=== PATIENT | female | born 1950 | race Caucasian/White ===

== ENCOUNTER 2019-06-28 08:26 | Inpatient (IN) ==
--- NOTE | 2019-06-19 14:13 | Anesthesiology Consultation ---
Date of Service June 19, 2019 Assessment & Plan (1) Encounter for pre-operative examination: Chart Review Chart Review: Acceptable Risk for Surgery, Patient NOT seen in Pre Admission Testing and data entry supervisor initiated Consults Requested none History Surgery Operation Date: 06/28/19 09:30 Proposed Procedures p Esophagogastroduodenoscopy Dr. Browne - Jagjit Browne MD Height/Weight Height: 5 ft 6 in Weight: 81.647 kg Allergies Allergy/AdvReac Type Severity Reaction Status Date / Time Penicillins Allergy Mild RASH Verified 06/28/19 08:44 Medications Home Medications Medication Instructions Recorded Confirmed Last Taken albuterol sulfate HFA 90 2 puffs INHALATION Q4H PRN #18 gm 03/29/19 06/28/19 Unknown mcg/actuation aerosol inhaler triamcinolone acetonide 0.1 % 1 appln TOPICAL HS #80 gm 03/29/19 06/28/19 Unknown topical ointment lisinopril 10 1 tab PO QAM tab 04/04/19 06/28/19 06/27/19 09:00 mg-hydrochlorothiazide 12.5 mg tablet clindamycin HCl 150 mg capsule 600 mg PO UD PRN cap 06/08/19 06/28/19 06/21/19 pravastatin 20 mg tablet 20 mg PO QPM tab 06/08/19 06/28/19 06/27/19 09:00 ascorbic acid (vitamin C) 500 mg PO QAM 06/18/19 06/28/19 06/27/19 09:00 aspirin 81 mg PO QAM 06/18/19 06/28/19 06/26/19 calcium carbonate-vitamin D3 1 tab PO QAM 06/18/19 06/28/19 06/27/19 09:00 cannabidiol (CBD) extract 100 mg PO BID 06/18/19 06/28/19 06/27/19 21:00 duloxetine 20 mg PO QPM 06/18/19 06/28/19 06/27/19 21:00 duloxetine 40 mg PO QAM 06/18/19 06/28/19 06/27/19 09:00 meclizine 25 mg PO TID PRN 06/18/19 06/28/19 06/26/19 multivitamin 1 cap PO QAM 06/18/19 06/28/19 06/27/19 09:00 omega-3 acid ethyl esters 1 cap PO QAM 06/18/19 06/28/19 06/27/19 09:00 pyridoxine (vitamin B6) 100 mg PO QAM 06/18/19 06/28/19 06/27/19 09:00 ranitidine HCl 150 mg PO HS 06/18/19 06/28/19 06/27/19 21:00 pantoprazole 40 mg tablet,delayed 40 mg PO QAM #90 tab 06/21/19 06/27/19 09:00 release Past Medical History Medical History Psoriasis (Chronic) HTN (hypertension) (Chronic) Dyslipidemia (Chronic) Depression (Chronic) Arthritis (Chronic) GERD (gastroesophageal reflux disease) Hiatal hernia History of gastric ulcer Osteoarthritis Spinal stenosis Wheezing intermittent, reason for inhaler prn Past Family History Family History Father Coronary heart disease Heart disease Parkinsonian tremor Grandfather (Maternal) Coronary heart disease Heart disease Family history of diabetes mellitus Grandmother Rheumatoid arthritis Coronary heart disease Heart disease Sister Rheumatoid arthritis Diabetes Depression Osteoarthritis Mother Rheumatoid arthritis Diabetes Hypertension Stroke Family history of reaction to anesthesia trouble waking Family history of diabetes mellitus Aunt Diabetes Osteoporosis Family history of diabetes mellitus Uncle Family history of diabetes mellitus Grandmother (Maternal) Family history of diabetes mellitus Past Surgical History Surgical History History of carpal tunnel surgery of left wrist History of colonoscopy History of dilatation and curettage History of esophagogastroduodenoscopy (EGD) History of repair of right rotator cuff History of tonsillectomy and adenoidectomy History of tooth extraction History of total left knee replacement (TKR) History of total right knee replacement (TKR) History of wisdom tooth extraction Status post left foot surgery planter fascitis Social History Smoking Status: Former smoker Do You Dip or Chew Tobacco: No Smoking End Date: quit 30yrs ago Hx Alcohol Use: No Hx Substance Use: No substance use type: does not use Physical Exam Vital Signs Last Vital Signs Temp 36.4 C L 06/28/19 08:52 Pulse 65 06/28/19 08:52 Resp 18 06/28/19 08:52 BP 136/78 06/28/19 08:52 Pulse Ox 98 06/28/19 08:52 Testing Laboratory Results Laboratory Tests 06/11/19 06/11/19 09:59 09:59 WBC 7.04 Hgb 12.1 Hct 38.2 Plt Count 317 Sodium 140 Potassium 3.9 Chloride 105 Carbon Dioxide 27 BUN 18 Creatinine 0.82 Glucose 114 H TSH 2.430 Electrocardiogram Date: 09/22/10 Findings: + SB @ (58)
--- NOTE | 2019-06-28 08:58 | History & Physical Report ---
Date of Service June 28, 2019 Assessment & Plan (1) GERD (gastroesophageal reflux disease): Proceed with EGD. risks/benefits and procedure discussed with patient, who agrees to proceed History of Present Illness Primary Care Provider: Mina Beckham DO 68 yo female here for egd today. Allergies Allergy/AdvReac Type Severity Reaction Status Date / Time Penicillins Allergy Mild RASH Verified 06/28/19 08:44 Home Medications Home Medications Medication Instructions Recorded Confirmed Type albuterol sulfate HFA 90 2 puffs INHALATION Q4H PRN #18 gm 03/29/19 06/28/19 Rx mcg/actuation aerosol inhaler triamcinolone acetonide 0.1 % 1 appln TOPICAL HS #80 gm 03/29/19 06/28/19 Rx topical ointment lisinopril 10 1 tab PO QAM tab 04/04/19 06/28/19 History mg-hydrochlorothiazide 12.5 mg tablet clindamycin HCl 150 mg capsule 600 mg PO UD PRN cap 06/08/19 06/28/19 History pravastatin 20 mg tablet 20 mg PO QPM tab 06/08/19 06/28/19 History ascorbic acid (vitamin C) 500 mg PO QAM 06/18/19 06/28/19 History aspirin 81 mg PO QAM 06/18/19 06/28/19 History calcium carbonate-vitamin D3 1 tab PO QAM 06/18/19 06/28/19 History cannabidiol (CBD) extract 100 mg PO BID 06/18/19 06/28/19 History duloxetine 20 mg PO QPM 06/18/19 06/28/19 History duloxetine 40 mg PO QAM 06/18/19 06/28/19 History meclizine 25 mg PO TID PRN 06/18/19 06/28/19 History multivitamin 1 cap PO QAM 06/18/19 06/28/19 History omega-3 acid ethyl esters 1 cap PO QAM 06/18/19 06/28/19 History pyridoxine (vitamin B6) 100 mg PO QAM 06/18/19 06/28/19 History ranitidine HCl 150 mg PO HS 06/18/19 06/28/19 History pantoprazole 40 mg tablet,delayed 40 mg PO QAM #90 tab 06/21/19 Rx release Past Med/Surg History Medical History Psoriasis (Chronic) HTN (hypertension) (Chronic) Dyslipidemia (Chronic) Depression (Chronic) Arthritis (Chronic) GERD (gastroesophageal reflux disease) Hiatal hernia History of gastric ulcer Osteoarthritis Spinal stenosis Wheezing intermittent, reason for inhaler prn Surgical History History of carpal tunnel surgery of left wrist History of colonoscopy History of dilatation and curettage History of esophagogastroduodenoscopy (EGD) History of repair of right rotator cuff History of tonsillectomy and adenoidectomy History of tooth extraction History of total left knee replacement (TKR) History of total right knee replacement (TKR) History of wisdom tooth extraction Status post left foot surgery planter fascitis Family History Father Coronary heart disease Heart disease Parkinsonian tremor Grandfather (Maternal) Coronary heart disease Heart disease Family history of diabetes mellitus Grandmother Rheumatoid arthritis Coronary heart disease Heart disease Sister Rheumatoid arthritis Diabetes Depression Osteoarthritis Mother Rheumatoid arthritis Diabetes Hypertension Stroke Family history of reaction to anesthesia trouble waking Family history of diabetes mellitus Aunt Diabetes Osteoporosis Family history of diabetes mellitus Uncle Family history of diabetes mellitus Grandmother (Maternal) Family history of diabetes mellitus Social History Preferred Language: Hong Konger Communication Ability: Effective Visual Impairment: No Limitations Hearing Ability: Normal Cctv Technician Required: No Beliefs That Will Affect Care: None marital status: Single Current Living Situation: Family and Significant Other Current Living Situation Comment: Lives with significant other, son and grandchildren current occupational status: retired Other Information That Helps Us Care for You: No Feels Safe at Home: Yes Safety Concerns: Feels Safe At This Time Smoking Status: Former smoker Do You Dip or Chew Tobacco: No ; Smoking End Date: quit 30yrs ago ; Second Hand Exposure: No ; Tobacco Cessation Education Requested by Patient: No Hx Alcohol Use: No Hx Substance Use: No Childhood Exposure to Second-Hand Smoke: No caffeine: Yes during the past year weight has: remained stable Dental Care, Regularly: Yes Physical Activity Frequency: 3-4 Times per Week Seatbelt Use: always Sunscreen Use: Yes Physical Exam Constitutional: WD/WN, vitals as above Respiratory: normal respiratory effort, lungs clear to auscultation Cardiovascular: RRR, no murmur, no edema Gastrointestinal (Abdomen): normal bowel sounds, soft, nontender, no hepatosplenomegaly Musculoskeletal: no lower extremity edema Psychiatric: A+Ox3, euthymic affect Results & Data Vital Signs (Past 12 Hours) Vital Signs Temp Pulse Resp BP Pulse Ox 06/28/19 08:52 36.4 C L 65 18 136/78 98
[2019-06-28] MEDS ORDERED: SODIUM CHLORIDE 0.9% 1000ML 1,000 ML IV SCH (09:00)
[2019-06-28] MEDS ORDERED: ATROPINE SULFATE 0.1 MG/ML 10ML SYR IV PRN (09:24)
[2019-06-28] MEDS ORDERED: ePHEDrine sulfate 50 MG/ML AMP IV PRN (09:24)
[2019-06-28] MEDS ORDERED: LIDOCAINE HCL 2% 2 ML VIAL/AMP(20MG/ML) INFIL ONE (09:39)
[2019-06-28] MEDS ORDERED: PROPOFOL IV EMULSION 10 MG/ML 20 ML VIAL IV ONE ×3 (09:39→09:57)
--- NOTE | 2019-06-28 10:05 | GI REPORT ---
Patient Name: Jennifer Castro Procedure Date: 06/28/2019 9:05 AM Date of : 1950 Admit Type: Outpatient Age: 68 Gender: Female Attending MD: Jagjit Browne MD Procedure: Upper GI endoscopy Providers: Jagjit Browne MD Referring MD: Mina Beckham Indications: Heartburn Medicines: Monitored Anesthesia Care Complications: No immediate complications. Estimated blood loss: None. Estimated Blood Loss: Estimated blood loss: none. Procedure: Pre-Anesthesia Assessment: - Prior Anticoagulants: The patient has taken no previous anticoagulant or antiplatelet agents. - ASA Grade Assessment: II - A patient with mild systemic disease. After obtaining informed consent, the endoscope was passed under direct vision. Throughout the procedure, the patient's blood pressure, pulse, and oxygen saturations were monitored continuously. The Endoscope was introduced through the mouth, and advanced to the body of the stomach. The upper GI endoscopy was accomplished without difficulty. The patient tolerated the procedure well. Findings: A medium-sized hiatal hernia was present. A single 5 mm sessile polyp with no stigmata of recent bleeding was found in the gastric fundus. The polyp was removed with a cold snare. Resection and retrieval were complete. Estimated blood loss: none. The stomach body/antrum was twisted on itself, concerning for a possible volvulus vs. gastric outlet obstruction. Unable to locate the pylorus. Impression: - Medium-sized hiatal hernia. - A single gastric polyp. Resected and retrieved. Recommendation: - [facility] the [facility]. - NPO today. - Await pathology results. recommend admission and CT A/P with contrast to further evaluate for possible volvulus, surgery evaluation if volvulus/gastric outlet obstruction is confirmed Jagjit Browne MD 06/28/2019 10:05:06 AM This report has been signed electronically. Note Initiated On: 06/28/2019 9:05 AM Number of Addenda: 0 I attest to the content of the Intraoperative Record and orders documented therein, exceptions below {[id number]}
--- NOTE | 2019-06-28 12:40 | Anesthesiology Progress Note ---
Date of Service June 28, 2019 Anesthesia Post Procedure Vital Signs Vital Signs: Temp Pulse Resp BP Pulse Ox 06/28/19 11:15 67 18 124/87 97 06/28/19 10:46 60 18 124/72 97 06/28/19 10:32 62 18 95/76 L 94 06/28/19 10:01 60 18 108/66 97 06/28/19 08:52 36.4 C L 65 18 136/78 98 Transfer of Care Handoff Completed per policy Notes Mental Status: alert / awake / arousable Patient Amnestic to Procedure: Yes Nausea / Vomiting: adequately controlled Pain: adequately controlled Airway Patency, RR, SpO2: stable & adequate BP & HR: stable & adequate Hydration State: stable & adequate Anesthetic Complications: no major complications apparent and Pt Satisfied with anesthetic care
[2019-06-28] MEDS ORDERED: ACETAMINOPHEN 325 MG TAB PO PRN (12:49)
[2019-06-28] MEDS ORDERED: ONDANSETRON INJ 2 MG/ML 2 ML VIAL IV PRN (12:49)
[2019-06-28] MEDS ORDERED: ALBUT/IPRATROP 3MG/0.5MG NEB 3 ML VIAL NEB PRN (12:49)
--- NOTE | 2019-06-28 13:54 | History & Physical Report ---
Date of Service June 28, 2019 Assessment & Plan (1) Gastric volvulus: EGD with Dr. Browne on 06/28 was concerning for gastric volvulus. - CT a/p with oral and IV contrast - Depending on findings, consider gen surg consult (2) HTN (hypertension): BP stable at 125/90 after EGD. - Continue home meds (3) GERD (gastroesophageal reflux disease): Long-standing. Symptoms slowly worsening. - Continue home meds (4) Wheezing: Unclear whether this is asthma or other diagnosis. - DuoNebs PRN (5) DVT prophylaxis: SCDs - Low DVT risk per admission calculator & also in case she would need surgery History of Present Illness Chief Complaint: Possible gastric volvulus Primary Care Provider: Mina Beckham DO 68-year-old female with a history of hypertension and GERD who presents with possible gastric volvulus. The patient underwent an EGD this morning with Dr. Browne who found that she had a possible gastric volvulus. He was unable to assess the gastric outlet area given his findings. The patient reports that she is been having "years" of worsening GERD symptoms. She notes that the pain is usually worse when she has spicy food or food with "sauce". She reports the pain/GERD symptoms have been slowly getting worse, but steadily. Denies any recent jump in her symptoms. At present she denies any symptoms of abdominal pain, nausea, vomiting. She denies any recent history of fevers, chills, chest pain, shortness of breath, urinary or bowel symptoms. Allergies Allergy/AdvReac Type Severity Reaction Status Date / Time Penicillins Allergy Mild RASH Verified 06/28/19 08:44 Home Medications Home Medications Medication Instructions Recorded Confirmed Type albuterol sulfate HFA 90 2 puffs INHALATION Q4H PRN #18 gm 03/29/19 06/28/19 Rx mcg/actuation aerosol inhaler triamcinolone acetonide 0.1 % 1 appln TOPICAL HS #80 gm 03/29/19 06/28/19 Rx topical ointment lisinopril 10 1 tab PO QAM tab 04/04/19 06/28/19 History mg-hydrochlorothiazide 12.5 mg tablet clindamycin HCl 150 mg capsule 600 mg PO UD PRN cap 06/08/19 06/28/19 History pravastatin 20 mg tablet 20 mg PO QPM tab 06/08/19 06/28/19 History ascorbic acid (vitamin C) 500 mg PO QAM 06/18/19 06/28/19 History aspirin 81 mg PO QAM 06/18/19 06/28/19 History calcium carbonate-vitamin D3 1 tab PO QAM 06/18/19 06/28/19 History cannabidiol (CBD) extract 100 mg PO BID 06/18/19 06/28/19 History duloxetine 20 mg PO QPM 06/18/19 06/28/19 History duloxetine 40 mg PO QAM 06/18/19 06/28/19 History meclizine 25 mg PO TID PRN 06/18/19 06/28/19 History multivitamin 1 cap PO QAM 06/18/19 06/28/19 History omega-3 acid ethyl esters 1 cap PO QAM 06/18/19 06/28/19 History pyridoxine (vitamin B6) 100 mg PO QAM 06/18/19 06/28/19 History ranitidine HCl 150 mg PO HS 06/18/19 06/28/19 History pantoprazole 40 mg tablet,delayed 40 mg PO QAM #90 tab 06/21/19 Rx release Past Med/Surg History Medical History Psoriasis (Chronic) HTN (hypertension) (Chronic) Dyslipidemia (Chronic) Depression (Chronic) Arthritis (Chronic) GERD (gastroesophageal reflux disease) Hiatal hernia History of gastric ulcer Osteoarthritis Spinal stenosis Wheezing intermittent, reason for inhaler prn Surgical History History of carpal tunnel surgery of left wrist History of colonoscopy History of dilatation and curettage History of esophagogastroduodenoscopy (EGD) History of repair of right rotator cuff History of tonsillectomy and adenoidectomy History of tooth extraction History of total left knee replacement (TKR) History of total right knee replacement (TKR) History of wisdom tooth extraction Status post left foot surgery planter fascitis Family History Father Coronary heart disease Heart disease Parkinsonian tremor Grandfather (Maternal) Coronary heart disease Heart disease Family history of diabetes mellitus Grandmother Rheumatoid arthritis Coronary heart disease Heart disease Sister Rheumatoid arthritis Diabetes Depression Osteoarthritis Mother Rheumatoid arthritis Diabetes Hypertension Stroke Family history of reaction to anesthesia trouble waking Family history of diabetes mellitus Aunt Diabetes Osteoporosis Family history of diabetes mellitus Uncle Family history of diabetes mellitus Grandmother (Maternal) Family history of diabetes mellitus Social History Preferred Language: Nepali Communication Ability: Effective Visual Impairment: No Limitations Hearing Ability: Normal Grocery Buyer Required: No Beliefs That Will Affect Care: None marital status: Single Current Living Situation: Significant Other Current Living Situation Comment: Lives with significant other, son and grandchildren current occupational status: retired Other Information That Helps Us Care for You: No Feels Safe at Home: Yes Safety Concerns: Feels Safe At This Time Smoking Status: Former smoker Do You Dip or Chew Tobacco: No ; Smoking End Date: 20yrs ago quit ; Second Hand Exposure: No ; Tobacco Cessation Education Requested by Patient: No Hx Alcohol Use: No Hx Substance Use: No Childhood Exposure to Second-Hand Smoke: No caffeine: Yes during the past year weight has: remained stable Dental Care, Regularly: Yes Physical Activity Frequency: 3-4 Times per Week Seatbelt Use: always Sunscreen Use: Yes Review of Systems Review of Systems: All systems reviewed & are unremarkable except as noted in HPI & below Physical Exam Constitutional: WD/WN, vitals as above Eyes: EOM intact bilaterally; no conjunctival abnormality ENMT: external ear and nose normal, oropharynx normal Neck: trachea midline, no thyromegaly normal visual inspection Respiratory: normal respiratory effort, lungs clear to auscultation no respiratory distress Cardiovascular: RRR, no murmur, no edema Gastrointestinal (Abdomen): Inspection/Auscultation: abdomen normal to inspection and normal bowel sounds; abdomen not distended Percussion/Palpation: abdomen soft; abdomen nontender, no guarding and abdomen not rigid Musculoskeletal: no cyanosis or clubbing, extremities motor strength 5/5 Skin: no rashes, warm and dry Neurologic: moves all extremities and awake Psychiatric: Orientation: alert, oriented to person and cooperative Results & Data Vital Signs (Past 12 Hours) Vital Signs Temp Pulse Resp BP Pulse Ox 06/28/19 12:45 36.7 C 69 16 99 06/28/19 11:15 67 18 124/87 97 06/28/19 10:46 60 18 124/72 97 06/28/19 10:32 62 18 95/76 L 94 06/28/19 10:01 60 18 108/66 97 06/28/19 08:52 36.4 C L 65 18 136/78 98 Code Status & VTE Plan VTE Prophylaxis Plan VTE Prophylaxis will be ordered: Yes PG Care Time/CCT Total # of Minutes Spent Total Time Spent with Patient: Total time spent is greater than 50% in coordination of care (as documented) at patient's floor/unit and/or counseling patient:
[2019-06-28] MEDS ORDERED: INFLUENZA VACCINE HIGH DOSE 65+ 0.5 ML SYR IM ONE (15:15)
[2019-06-28] MEDS ORDERED: INFLUENZA ADMINISTRATION CHARGE ONE (15:15)
[2019-06-28] MEDS ORDERED: IOVERSOL 100ml IV PRN (15:25)
--- NOTE | 2019-06-28 15:42 | CT Scan Report ---
CT abd pelvis oral and IV con CLINICAL HISTORY: Abnormal upper endoscopy. Possible gastric volvulus. COMPARISON STUDY: None TECHNIQUE: The patient was scanned following administration of dilute oral contrast, and in a dynamic helical fashion during intravenous administration of 93 cc of Optiray 320. A dose lowering techniqu e was utilized adhering to the principles of ALARA. CT DOSE: 650.40 mGy.cm FINDINGS: Lower chest: There is partial visualization of a large hiatal hernia. There is a probable rotational abnormality of the stomach in the hernia sac however visualization of the entire hernia and esophagog astric junction will be necessary for more accurate characterization. There is no evidence for gastri c outlet obstruction. Liver: The contrast-enhanced liver is normal in size, contour, and attenuation. There is no intrahepa tic biliary ductal dilatation. The hepatic veins and portal veins are patent. Gallbladder: Unremarkable. Spleen: Normal in size and attenuation. Pancreas: Unremarkable. Adrenal glands: Unremarkable. Kidneys: No solid renal masses are visualized. There is mild fullness the right renal collecting syst em. Bowel: There are no transition zones indicate bowel obstruction. There is colonic diverticulosis. The re is no evidence of acute diverticulitis. There is no evidence of acute appendicitis Peritoneum: There is no intraperitoneal free air or abdominal ascites. Vasculature: The abdominal aorta is normal in course and caliber. Adenopathy: None. Pelvic viscera: There is a thickened fundal endometrium versus a submucosal fibroid. Calcified fibroi ds are visualized. Skeletal structures: No destructive osseous lesions are seen. IMPRESSION: 1. Partially visualized large hiatal hernia. A rotational abnormality of the stomach in the hernia sa c is suspected however it cannot be fully characterized as the entire hernia is not visualized on thi s CT scan of the abdomen. The esophagogastric junction is not visualized. CT scanning the chest could be obtained for further characterization as deemed clinically appropriate. There is no evidence of g astric outlet obstruction 2. No evidence of bowel obstruction. No evidence of free air 3. No acute inflammatory changes 4. Mild fullness the right renal collecting system Electronically signed by: Bereket Contreras M.D. 06/28/2019 3:41 PM
--- NOTE | 2019-06-28 17:05 | CT Scan Report ---
CT chest wo con CLINICAL HISTORY: Large hiatal hernia with rotation COMPARISON STUDY: 06/28/2019 CT DOSE: 376.61 mGy.cm TECHNIQUE: CT of the thorax was performed from the thoracic inlet to the lung bases. Images are revi ewed in the axial, sagittal, and coronal planes. IV contrast was not administered for this examinatio n. A dose lowering technique was utilized adhering to the principles of ALARA. FINDINGS: Thyroid: Imaged portions of the thyroid gland are normal in appearance. Thoracic aorta: There is mild ectasia of descending thoracic aorta which measures 36 mm. Heart: The heart is normal in size. There is no pericardial effusion. There are coronary artery calci fications. Lungs and pleural spaces: There are no pleural effusions. There is mild left basilar atelectatic espinosa ge. There is no focal pulmonary consolidation to indicate pneumonia. There is a 5 mm left upper lobe pulmonary nodule versus small aneurysm Mediastinum: There is no mediastinal lymphadenopathy. There is a sliding-type hiatal hernia with an o rganoaxial gastric volvulus. Miya: There is no evidence of pathologic hilar adenopathy given the limitations of a noncontrast stud y Axilla: Clear. Upper abdomen: There is a large sliding hiatal hernia with an organoaxial gastric volvulus. Skeletal structures: There are no lytic or blastic osseous lesions. IMPRESSION: 1. Large sliding hiatal hernia with an organoaxial gastric volvulus 2. 5 mm left upper pulmonary nodule versus small aneurysm Electronically signed by: Bereket Contreras M.D. 06/28/2019 5:04 PM
--- NOTE | 2019-06-28 17:28 | Discharge Summary ---
Date of Service June 28, 2019 Admission HPI Per Admitting Provider 68-year-old female with a history of hypertension and GERD who presents with possible gastric volvulus. The patient underwent an EGD this morning with Dr. Browne who found that she had a possible gastric volvulus. He was unable to assess the gastric outlet area given his findings. The patient reports that she is been having "years" of worsening GERD symptoms. She notes that the pain is usually worse when she has spicy food or food with "sauce". She reports the pain/GERD symptoms have been slowly getting worse, but steadily. Denies any recent jump in her symptoms. At present she denies any symptoms of abdominal pain, nausea, vomiting. She denies any recent history of fevers, chills, chest pain, shortness of breath, urinary or bowel symptoms. Principal Diagnosis Hiatal hernia with gastric volvulus Discharge Exam Constitutional WD/WN, vitals as above Eyes EOM intact bilaterally; no conjunctival abnormality ENMT external ear and nose normal, oropharynx normal Neck trachea midline, no thyromegaly normal visual inspection Respiratory normal respiratory effort, lungs clear to auscultation no respiratory distress Cardiovascular RRR, no murmur, no edema Gastrointestinal (Abdomen) Inspection/Auscultation: abdomen normal to inspection and normal bowel sounds; abdomen not distended Percussion/Palpation: abdomen soft; abdomen nontender, no guarding and abdomen not rigid Musculoskeletal no cyanosis or clubbing, extremities motor strength 5/5 Skin no rashes, warm and dry Neurologic moves all extremities and awake Psychiatric Orientation: alert, oriented to person and cooperative Discharge Data Allergies Allergy/AdvReac Type Severity Reaction Status Date / Time Penicillins Allergy Mild RASH Verified 06/28/19 08:44 Procedures Performed Operation Date: 06/28/19 09:30 Actual Procedures p EGD Polypectomy - Jagjit Browne MD Ordered Studies 06/28/19 12:49 CT abd pelvis oral and IV con [facility] 06/28/19 16:30 CT chest wo con [facility] Hospital Course (1) Gastric volvulus: EGD with Dr. Browne on 06/28 was concerning for gastric volvulus. - CT chest showed a large sliding hernia with organoaxial gastric volvulus - Patient has had no symptoms of this other than her gradually increasing GERD symptoms. The case was discussed with Dr. Musa Kenney who will see her in the office on Tuesday. The patient was told to seek immediate medical care if she has new, worsening, or different abdominal pain, or fevers, chills, nausea, vomiting, or other gastric symptoms. 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 Up-to-date indicates her annual probability of developing acute symptoms requiring emergent surgery is only 1.2%. (2) HTN (hypertension): BP stable at 125/90 after EGD. - Continue home meds (3) GERD (gastroesophageal reflux disease): Long-standing. Symptoms slowly worsening. - Continue home meds (4) Wheezing: Unclear whether this is asthma or other diagnosis. - DuoNebs PRN (5) DVT prophylaxis: SCDs - Low DVT risk per admission calculator & also in case she would need surgery Total Time Total Time Spent Total Time Spent (In Minutes): 45 Discharge Plan Discharge Items Patient Disposition: Home - Self-Care Reason For Visit: GASTRIC VOLVULUS Discharge Diagnosis: Concern for gastric volvulus - large hiatal hernia Activity: Resume your previous activity Non-emergency contact: Primary Care Provider and Surgeon Call non-emergency contact if: your pain is not controlled, your pain is worsening, your pain is unusual for you, your pain is concerning for you and your temperature is above 101 Follow-up/Referrals: Eder Dietrich MD, FACS [Surgeon] - (Please call Dr. Dietrich's office if you would like to discuss surgical options with him.) Mina Beckham DO [Primary Care Provider] - Diet: Regular Addtl Attending Provider Instructions: You were admitted after an EGD showed a possible twisting of your stomach. We did a CT scan of your chest and your abdomen which shows a large hiatal hernia that does have rotation. This puts it at risk for losing blood flow at some point in the future. This can be a dangerous situation and you should seek immediate medical help if you have new pain, worsening pain, nausea, or vomi ting. Please follow up with Dr. Dietrich or a surgeon of your choosing within 1-2 weeks. Pending Studies at Discharge: No Stand-Alone Forms: My [facility] [email or web address] Medications and DC Order Prescriptions: Continued pantoprazole 40 mg tablet,delayed release (DR/EC) 40 mg PO QAM Qty: 90 RF: 3 albuterol sulfate 90 mcg/actuation HFA aerosol inhaler 2 puffs inhalation Q4H PRN (Reason: shortness of breath or wheezing) Qty: 18 RF: 3 triamcinolone acetonide 0.1 % ointment 1 appln topical HS Qty: 80 RF: 3 lisinopril-hydrochlorothiazide 10-12.5 mg tablet 1 tab PO QAM RF: 0 clindamycin HCl 150 mg capsule 600 mg PO UD PRN (Reason: prior to dental procedures) RF: 0 pravastatin 20 mg tablet 20 mg PO QPM RF: 0 ranitidine HCl 150 mg Tablet 150 mg PO HS RF: 0 duloxetine 20 mg Capsule,Delayed Release(Dr/Ec) 20 mg PO QPM RF: 0 cannabidiol (CBD) extract 100 mg/mL Solution 100 mg PO BID RF: 0 calcium carbonate-vitamin D3 600 mg(1,500mg) -200 unit tablet 1 tab PO QAM RF: 0 aspirin 81 mg tablet,delayed release (DR/EC) 81 mg PO QAM RF: 0 ascorbic acid (vitamin C) 500 mg tablet 500 mg PO QAM RF: 0 meclizine 25 mg tablet 25 mg PO TID PRN (Reason: Dizziness) RF: 0 pyridoxine (vitamin B6) 100 mg tablet 100 mg PO QAM RF: 0 multivitamin capsule 1 cap PO QAM RF: 0 duloxetine 20 mg capsule,delayed release(DR/EC) 40 mg PO QAM RF: 0 omega-3 acid ethyl esters 1 gram capsule 1 cap PO QAM RF: 0 Discharge Orders: Discharge Order (Routine); Ordered 06/28/19 Ordered By: Andi Cheatham Admission Data Admit Date/Time: 06/28/19 10:31 Attending Provider: Andi Cheatham Admit Provider: Andi Cheatham Primary Care Provider: Mina Beckham Other Interventions: Discharge Summary Assessment (RN) Last Done: 06/28/19 12:32
[2019-06-28] MEDS ORDERED: TRIAMCINOLONE ACET 0.1% OINT 15 GM TUBE TOP SCH (21:00)
[2019-06-28] MEDS ORDERED: DULOXETINE HCL 20 MG CAP PO SCH (21:00)
[2019-06-28] MEDS ORDERED: PRAVASTATIN SOD 20 MG TAB PO SCH (21:00)
[2019-06-29] MEDS ORDERED: DULOXETINE HCL 20 MG CAP PO SCH (09:00)
[2019-06-29] MEDS ORDERED: ASCORBIC ACID 500 MG TAB PO SCH (09:00)
== END 2019-06-28 17:56 | disposition home or self-care (01) | DRG 392 ==
LOC: ENDO 08:26 → 3W 10:31

== ENCOUNTER 2019-07-31 07:34 | Inpatient (IN) ==
--- NOTE | 2019-07-10 13:47 | Anesthesiology Consultation ---
Date of Service July 10, 2019 Assessment & Plan (1) Encounter for pre-operative examination: Chart Review Chart Review: Acceptable Risk for Surgery and Patient NOT seen in Pre Admission Testing Consults Requested none History Surgery Operation Date: 07/18/19 07:30 Proposed Procedures p Robotic-Assisted Laparoscopic Hiatal Hernia Repair, Fundoplication with - Eder Dietrich MD, FACS s Esophagogastroduodenoscopy - Eder Dietrich MD, FACS Height/Weight Height: 5 ft 6 in Weight: 81.647 kg Allergies Allergy/AdvReac Type Severity Reaction Status Date / Time Penicillins Allergy Mild RASH Verified 07/10/19 10:04 oxycodone AdvReac Intermediate Nausea Verified 07/10/19 10:04 Medications Home Medications Medication Instructions Recorded Confirmed Last Taken albuterol sulfate HFA 90 2 puffs INHALATION Q4H PRN #18 gm 03/29/19 07/10/19 Unknown mcg/actuation aerosol inhaler triamcinolone acetonide 0.1 % 1 appln TOPICAL HS #80 gm 03/29/19 07/10/19 Unknown topical ointment lisinopril 10 1 tab PO QAM tab 04/04/19 07/10/19 06/27/19 09:00 mg-hydrochlorothiazide 12.5 mg tablet clindamycin HCl 150 mg capsule 600 mg PO UD PRN cap 06/08/19 07/10/19 06/21/19 pravastatin 20 mg tablet 20 mg PO QPM tab 06/08/19 07/10/19 06/27/19 09:00 ascorbic acid (vitamin C) 500 mg PO QAM 06/18/19 07/10/19 06/27/19 09:00 aspirin 81 mg PO QAM 06/18/19 07/10/19 06/26/19 calcium carbonate-vitamin D3 1 tab PO QAM 06/18/19 07/10/19 06/27/19 09:00 cannabidiol (CBD) extract 100 mg PO BID 06/18/19 07/10/19 06/27/19 21:00 duloxetine 20 mg PO QPM 06/18/19 07/10/19 06/27/19 21:00 duloxetine 40 mg PO QAM 06/18/19 07/10/19 06/27/19 09:00 meclizine 25 mg PO TID PRN 06/18/19 07/10/19 06/26/19 multivitamin 1 cap PO QAM 06/18/19 07/10/19 06/27/19 09:00 omega-3 acid ethyl esters 1 cap PO QAM 06/18/19 07/10/19 06/27/19 09:00 pyridoxine (vitamin B6) 100 mg PO QAM 06/18/19 07/10/19 06/27/19 09:00 ranitidine HCl 150 mg PO HS 06/18/19 07/10/19 06/27/19 21:00 pantoprazole 40 mg tablet,delayed 40 mg PO QAM #90 tab 06/21/19 07/10/19 06/27/19 09:00 release acetaminophen [Acetaminophen Extra 1,000 mg PO DAILY PRN 07/09/19 07/10/19 Unknown Strength] Past Medical History Medical History Psoriasis (Chronic) HTN (hypertension) (Chronic) Dyslipidemia (Chronic) Depression (Chronic) Arthritis (Chronic) GERD (gastroesophageal reflux disease) Hiatal hernia History of bronchitis History of gastric ulcer Osteoarthritis Spinal stenosis Wheezing intermittent, reason for inhaler prn Past Family History Family History Father Heart disease Hypertension Grandfather (Maternal) Heart disease Grandmother Heart disease Sister Diabetes Mother Diabetes Stroke Heart disease Aunt Diabetes Uncle No problems noted. Grandmother (Maternal) No problems noted. Past Surgical History Surgical History History of carpal tunnel surgery of left wrist History of colonoscopy History of dilatation and curettage History of esophagogastroduodenoscopy (EGD) History of repair of right rotator cuff History of tonsillectomy and adenoidectomy History of tooth extraction History of total left knee replacement (TKR) History of total right knee replacement (TKR) History of wisdom tooth extraction Status post left foot surgery planter fascitis Social History Smoking Status: Former smoker Do You Dip or Chew Tobacco: No Smoking End Date: quit 30 years ago Hx Alcohol Use: No Hx Substance Use: No substance use type: does not use Testing Laboratory Results Laboratory Tests 08/18/18 06/11/19 06/11/19 11:51 09:59 09:59 WBC 7.04 Hgb 12.1 Hct 38.2 Plt Count 317 Sodium 140 Potassium 3.9 Chloride 105 Carbon Dioxide 27 BUN 18 Creatinine 0.82 Glucose 114 H Hemoglobin A1c 5.6 TSH 2.430 Electrocardiogram Date: 08/18/18 Findings: + NSR @ (63) PACs
[~2019-07-31 07:34] MED LIST: LR 15ML/HR IV SCH
[2019-07-31] MEDS ORDERED: BUPIVACAINE LIPOSOME 1.3% 266 MG/20 ML VIAL ONE (08:15)
[2019-07-31] MEDS ORDERED: BUPIVACAINE 0.5 % 5 MG/1 ML MPF 30ML VIAL ONE (08:15)
[2019-07-31] MEDS ORDERED: SODIUM CHLORIDE 0.9% PF 50 ML VIAL ONE (08:16)
[2019-07-31] MEDS ORDERED: MIDAZOLAM HCL 1 MG/ML 2ML VIAL ONE (08:22)
[2019-07-31] MEDS ORDERED: LARYING-O-JET KIT (LTA) ONE (08:22)
[2019-07-31] MEDS ORDERED: fentaNYL citrate 100 MCG/2 ML VIAL ONE ×3 (08:22→11:52)
[2019-07-31] MEDS ORDERED: LIDOCAINE HCL 2% 2 ML VIAL/AMP(20MG/ML) INFIL ONE (08:22)
[2019-07-31] MEDS ORDERED: ROCURONIUM BROMIDE 10 MG/ML 5 ML VIAL ONE ×4 (08:22→10:01)
[2019-07-31] MEDS ORDERED: GLYCOPYRROLATE 0.2 MG/ML VIAL ONE (08:22)
[2019-07-31] MEDS ORDERED: PROPOFOL IV EMULSION 10 MG/ML 20 ML VIAL IV ONE (08:22)
--- NOTE | 2019-07-31 09:08 | History & Physical Bridge Note ---
Date of Service July 31, 2019 History & Physical Bridge Note I have examined the patient, reviewed the History & Physical and in the interval since the performance of the History & Physical I have noted the following changes of clinical significance: no changes noted
[2019-07-31] MEDS ORDERED: CLINDAMYCIN PHOS 300 MG/2 ML VIAL ONE ×2 (09:42→09:48)
[2019-07-31] MEDS ORDERED: CLINDAMYCIN PHOS 900 MG/6 ML VIAL IV ONE (10:32)
[2019-07-31] MEDS ORDERED: PROMETHAZINE HCL 12.5 MG in SODIUM CHLORIDE 0.9% 50 ML IV PRN (11:04)
[2019-07-31] MEDS ORDERED: ePHEDrine sulfate 50 MG/ML AMP IV PRN (11:04)
[2019-07-31] MEDS ORDERED: LABETALOL HCL IV 5 MG/ML 20ML IV PRN (11:04)
[2019-07-31] MEDS ORDERED: NALOXONE HCL 0.4 MG/1 ML VIAL/CARP IV PRN (11:04)
[2019-07-31] MEDS ORDERED: fentaNYL citrate 100 MCG/2 ML VIAL IV PRN (11:04)
[2019-07-31] MEDS ORDERED: HYDROmorphone INJ 1 MG/ML SYRINGE IV PRN (11:04)
[2019-07-31] MEDS ORDERED: ONDANSETRON INJ 2 MG/ML 2 ML VIAL IV PRN (11:04)
[2019-07-31] MEDS ORDERED: ATROPINE SULFATE 0.1 MG/ML 10ML SYR IV PRN (11:04)
[2019-07-31] MEDS ORDERED: FLUMAZENIL 0.1 MG/1 ML 10 ML VIAL IV PRN (11:04)
--- NOTE | 2019-07-31 11:53 | Operative Report ---
PG Post Operative Report Pre & Post Diagnosis Operation Date: 07/31/19 08:45 Pre-Op Diagnosis: Paraesophageal Hernia Post-Op Diagnosis: Paraesophageal Hernia I identified the patient and participated in the time-out.: Yes Procedure Operation Date: 07/31/19 08:45 Actual Procedures p Robotic-Assisted Laparoscopic Hiatal Hernia Repair - Eder Dietrich MD, FACS Surgeon Eder Dietrich MD, FACS Road Sign Installer Sally MATTHEWS Estimated Blood Loss 25 Findings Consistent with Post-Op Diagnosis Specimens Hernia Sac Anesthesia Type General Complications none Disposition Disposition: Recovery Room Indications Paraesophageal Hernia Description of Procedure This is 68-year-old female with a symptomatic paraesophageal hernia. She really had no symptoms of reflux. We long discussion in the office and in the hospital and elected to proceed with an elective robot-assisted laparoscopic repair. Patient has some esophageal dysmotility but not enough to offer her myotomy. I felt that a simple repair of this large paraesophageal hernia would be best. On 07/31/2019 the patient was brought to the operating room and underwent an uncomplicated robot-assisted laparoscopic repair of this hiatal hernia. She had a large hernia sac but we reduced the stomach nicely and there was a nice length of the esophagus in the abdomen I did not do a wrap. She tolerated well. Procedure: Patient was brought to the operating room and laid in the supine position. General anesthesia was induced and endotracheal intubation was performed. After appropriate monitoring lines and equipment have been placed, a timeout was called. Prophylactic antibiotics given. Patient was then prepped and draped in usual sterile fashion. I placed a 12 mm camera port in the midline above the umbilicus. This showed there was really no adhesions in the abdomen. We insufflated carbon dioxide. Then placed an 8 mm port midclavicular line on the left right under the costal margin. We placed another on the right a few centimeters below the costal margin in the midclavicular line. 5 mm incisions were then made and 5 mm ports placed in both lateral lower abdominal ports. An early childhood assistant's port was placed with a 12 mm port to the right of the umbilicus. The liver retractor was placed in the far right 5 mm port and we placed this and had excellent exposure. There was a large hiatus. We then proceeded to reduce omentum and stomach out of this. I used a Cardier and vessel sealer as well as a retractor and the 5 mm port. I then began taking the short gastrics all along the greater curvature. This led us directly up to the left crura. I then incised the hernia sac we took this out almost circumferentially from the left crura up anteriorly and then over to the right crura and divided the pars flaccida. I then took the hernia sac down by going into the relatively avascular plane and taking it all the way down this rather large hernia space. To get all the way down we could easily identify the esophagus. There was stomach adhesions which we had to spend a good deal of time removing. We had excellent exposure however finally able to get the entire hernia sac down. We freed up the esophagus nicely quite proximally. Coming back down we could see we had plenty of length in the abdomen. I then removed a large hernia sac using the vessel sealer. This was delivered off the field. 0 silk was used in a [id number] fashion x3 to close the posterior crura. This came together nicely under no tension. I placed another [id number] anteriorly. This looked quite good and I elected to hold off on a fundoplication or a tacking maneuver. Stomach laid very nicely. All instruments and retractors were removed. We really got into no bleeding. #1 Maxon was used to close the early childhood assistant's port as well as the camera port. 4 Monocryl was used in running subcuticular fashion to approximate the skin edges. Antimicrobial dressings were placed. The patient tolerated it very well was awakened without difficulty from anesthesia. Transported to the postanesthesia care unit stable condition. I attest to the content of the Intraoperative Record and any orders documented therein. Any exceptions are noted below.
[2019-07-31] MEDS ORDERED: METOCLOPRAMIDE HCL INJ 5 MG/ML 2 ML VIAL IV ONE (12:15)
--- NOTE | 2019-07-31 12:27 | XRay Report ---
XR chest 1V portable HISTORY: 68 years-old Female s/p hiatal hernia repair follow-up study in a patient with history of h iatal hernia repair COMPARISON: Chest CT 06/28/2019 TECHNIQUE: Portable AP view of the chest FINDINGS: Cardiac silhouette is enlarged. Retrocardiac lucency suggests residual hernia versus postoperative ch elisa. Linear subsegmental left basilar and right perihilar opacities suggest atelectasis. Moderate si zed right pneumothorax, 4.2 cm separation at the right lung apex. No left pneumothorax identified. De generative changes of the shoulders and spine. Mild right hemidiaphragmatic elevation. IMPRESSION: 1. Moderate right pneumothorax. 2. Cardiomegaly. 3. Bibasilar opacities suggest atelectasis. The above report was generated using voice recognition software. It may contain grammatical, syntax o r spelling errors. Electronically signed by: Gama Chen M.D. 07/31/2019 12:26 PM
--- NOTE | 2019-07-31 13:09 | Anesthesiology Progress Note ---
Date of Service July 31, 2019 Anesthesia Post Procedure Vital Signs Vital Signs: Temp Pulse Resp BP Pulse Ox 07/31/19 13:00 59 L 16 119/58 L 96 07/31/19 12:50 36.6 C 57 L 16 103/66 95 07/31/19 12:40 61 16 130/68 95 07/31/19 12:30 62 17 130/70 94 07/31/19 12:20 63 18 136/76 96 07/31/19 12:13 36.6 C 68 18 140/76 95 Transfer of Care Handoff Completed per policy Notes Mental Status: alert / awake / arousable Patient Amnestic to Procedure: Yes Nausea / Vomiting: adequately controlled Pain: adequately controlled Airway Patency, RR, SpO2: stable & adequate BP & HR: stable & adequate Hydration State: stable & adequate Anesthetic Complications: no major complications apparent
[2019-07-31] MEDS ORDERED: MECLIZINE HCL 25 MG TAB PO PRN (13:30)
[2019-07-31] MEDS ORDERED: ALBUTEROL HFA 8 GM INHALER INH PRN (13:30)
[2019-07-31] MEDS: D5W AND 1/2NSS 1,000 ML IV SCH ×2 (13:50→23:09)
[2019-07-31] MEDS: ACETAMINOPHEN 1,000 MG/100 ML VIAL IV SCH ×2 (13:51→22:05)
[2019-07-31] MEDS ORDERED: METOCLOPRAMIDE HCL INJ 5 MG/ML 2 ML VIAL IV SCH (14:00)
[2019-07-31] MEDS: MoRPHine SULFATE 2 MG/ML CARP IV PRN ×3 (15:01→20:29)
[2019-07-31] MEDS: ONDANSETRON INJ 2 MG/ML 2 ML VIAL IV SCH ×2 (16:09→22:05)
[2019-07-31] MEDS: METOCLOPRAMIDE HCL INJ 5 MG/ML 2 ML VIAL IV SCH (20:22)
[2019-07-31] MEDS: TRIAMCINOLONE ACET 0.1% OINT 15 GM TUBE TOP SCH (22:04)
[2019-07-31] MEDS: PRAVASTATIN SOD 20 MG TAB PO SCH (22:05)
[2019-07-31] MEDS: DOCUSATE SODIUM 100 MG CAP PO SCH (22:05)
[2019-07-31] MEDS: DULOXETINE HCL 20 MG CAP PO SCH (22:05)
[2019-08-01] MEDS: ONDANSETRON INJ 2 MG/ML 2 ML VIAL IV SCH ×7 (00:22→23:05)
[2019-08-01] MEDS: MoRPHine SULFATE 2 MG/ML CARP IV PRN (00:23)
[2019-08-01] MEDS: METOCLOPRAMIDE HCL INJ 5 MG/ML 2 ML VIAL IV SCH ×2 (05:38→12:58)
[2019-08-01] MEDS: ACETAMINOPHEN 1,000 MG/100 ML VIAL IV SCH (05:38)
--- NOTE | 2019-08-01 06:59 | XRay Report ---
XR chest 1V portable HISTORY: 68 years-old Female pneumotbhorax follow up study in a patient with right-sided pneumothora x COMPARISON: Chest radiograph 07/31/2019 TECHNIQUE: Semierect portable AP view of the chest FINDINGS: Cardiomediastinal and hilar silhouettes are unchanged. Lateral left lung base and retrocardiac opacit ies persist. Hypoinflated lungs. Resolution of the previously noted right apical pneumothorax. No def inite pneumothorax identified on today's study. No pleural effusion or overt pulmonary edema. IMPRESSION: 1. Previously noted right sided pneumothorax is not identified on today's exam. 2. Cardiomegaly with hypoinflation. The above report was generated using voice recognition software. It may contain grammatical, syntax o r spelling errors. Electronically signed by: Gama Chen M.D. 08/01/2019 6:58 AM
[2019-08-01] MEDS: D5W AND 1/2NSS 1,000 ML IV SCH (09:32)
--- NOTE | 2019-08-01 09:35 | Fluoroscopy Report ---
FL barium swallow CLINICAL HISTORY: 68 years-old Female presenting with s/p hiatal hernia repair. TECHNIQUE: A routine air-contrast (double contrast) barium esophagram was performed. Multiple spot im ages of the esophagus were acquired both upright and prone. COMPARISON: None. FINDINGS: Ingestion: The patient was able to ingest barium and the barium pill without difficulty. Aspiration: None. Esophageal mucosa: Normal. No evidence of intrinsic or extrinsic mass lesion. Esophageal motility: Delayed clearance of the distal esophagus, which contained a column of contrast. Mild distention of the mid to distal esophagus. Esophageal length: Normal. Gastroesophageal junction: Normal distention of the GE junction. No evidence of a hiatal hernia. Reflux: Evaluation for reflux not possible given the persistent column of contrast in the esophagus. Gastric emptying: Delayed gastric emptying evident with oral contrast diluted by intragastric fluid. Delayed imaging does not demonstrate significant clearance of contrast from the stomach. Fluoroscopy dosage (mGy): Not available. Fluoroscopy time: 3.1 minutes. Number or time of high level fluoroscopy (HLF), digital spot, or digital subtraction images: 15. IMPRESSION: 1. Post surgical changes of hiatal hernia repair. No recurrent hernia. 2. Delayed clearance of contrast from the distal esophagus likely relates to expected postoperative edema at the gastroesophageal junction. 3. Delayed clearance of contrast from the stomach a relate to postoperative ileus or other neurogeni c etiology. Obstruction is considered unlikely though no significant clearance after 15 minutes of im aging. Consider radiographic follow-up. Electronically signed by: Rito Clemens M.D. 08/01/2019 9:34 AM
[2019-08-01] MEDS: ENOXAPARIN INJ 40 MG/0.4 ML SYR SQ SCH (10:30)
--- NOTE | 2019-08-01 11:37 | XRay Report ---
KUB CLINICAL HISTORY: Status post paraesophageal hernia repair. FINDINGS: 2 AP, portable, supine abdominal radiographs are correlated with abdominal CT dated 019 and barium esophagram dated 08/01/2019. Enteric contrast fills the stomach and small bowel. There is no evidence of bowel obstruction. There is likely retained contrast within the distended distal e sophagus. No evidence of intraperitoneal free air is seen on these supine images. Numerous phlebolith s are observed in the pelvis. The skeletal structures are osteopenic an grossly intact. There is mild lumbosacral spondylosis and scoliosis. IMPRESSION: 1. Enteric contrast fills the stomach and small bowel loops. 2. There is no evidence of bowel obstruction. 3. There is likely retained oral contrast within the distended distal esophagus. This is only partial ly visualized. Electronically signed by: Isiah Joshi M.D. 08/01/2019 11:36 AM
[2019-08-01] MEDS: ASPIRIN 81 MG ECTAB PO SCH (12:57)
[2019-08-01] MEDS: PANTOprazole 40 MG TAB PO SCH (12:57)
[2019-08-01] MEDS: DOCUSATE SODIUM 100 MG CAP PO SCH ×2 (12:57→20:29)
--- NOTE | 2019-08-01 16:50 | Surgery Progress Note ---
Date of Service August 01, 2019 Assessment & Plan (1) History of repair of hiatal hernia: I am going to admit this patient and keep her for another day. I am uncomfortable sending her out due to the fact that she is hypoxic which she has never been before. In addition, while her x-ray looks much better today I am still concerned about the fact that we have not been to get her oxygen off. He was not hypoxic before this admission. We will stop her IV fluids. We will check another x-ray in the morning. We will probably discharge her. Present on Admission?: No Subjective Patient is having quite a bit of incisional pain. Her abdomen is soft and she has bowel sounds. She is also remained hypoxic. The patient lives alone. She is had no nausea or vomiting. We checked a barium swallow today and I was a bit concerned. She has no extravasation and there was a bit of hold up in the distal esophagus however we did not do a fundoplication. In addition there was stasis in her stomach which is not surprising after a paraesophageal hernia with her stomach in her chest. We repeated a KUB a few hours later and this had passed on to her small bowel although she still had some in her distal esophagus in her stomach. Patient has been ambulating. She is requiring oxygen still. We are going to allow her to have full liquids as she is hungry. If she is stable we will discharge her tomorrow. Physical Exam Physical Exam: Abdomen is soft. Her dressings are dry. She has no obvious hematomas. Neurologically she is completely intact. Her lungs are clear. Results & Data Vital Signs (Past 12 Hours) Vital Signs Temp Pulse Pulse Resp BP Pulse Ox 08/01/19 15:51 36.9 C 75 16 123/81 91 08/01/19 13:08 94 08/01/19 07:20 36.5 C 74 19 118/80 93 08/01/19 06:26 94 PG Care Time/CCT Total # of Minutes Spent Total Time Spent with Patient: Total time spent is greater than 50% in coordination of care (as documented) at patient's floor/unit and/or counseling patient:
[2019-08-01] MEDS: TRIAMCINOLONE ACET 0.1% OINT 15 GM TUBE TOP SCH (20:27)
[2019-08-01] MEDS: DULOXETINE HCL 20 MG CAP PO SCH (20:29)
[2019-08-01] MEDS: PRAVASTATIN SOD 20 MG TAB PO SCH (20:29)
[2019-08-02 07:31] VITALS: BP 119/73; TEMP 98.1
--- NOTE | 2019-08-02 07:32 | XRay Report ---
XR chest 1V portable CLINICAL HISTORY: 68 years-old Female presenting with pneumothorax. TECHNIQUE: Portable upright AP view of the chest was obtained. COMPARISON: 08/01/2019. FINDINGS: Atherosclerosis of the aortic arch. Cardiac silhouette enlarged. Mildly low lung volumes as on prior exam. Bandlike opacity in the right lower lung. Small left pleural effusion with decreased aeration o f the left lung base. No pneumothorax. Degenerative changes of the thoracic spine. Oral contrast may be present in the bowel in the left mid abdomen. IMPRESSION: 1. No pneumothorax. 2. Increased bibasilar atelectasis with mildly low lung volumes. 3. Suspected small left pleural effusion. 4. Cardiomegaly. Electronically signed by: Rito Clemens M.D. 08/02/2019 7:30 AM
--- NOTE | 2019-08-02 08:11 | XRay Report ---
KUB CLINICAL HISTORY: Status post hiatal hernia repair. FINDINGS: An AP, portable, supine abdominal radiograph is compared to study dated 08/01/2019 and sugar elated with abdominal CT dated 06/28/2019. There is a nonobstructed abdominal bowel gas pattern. Ente lizandro contrast is present in the colon. No evidence of intraperitoneal free air is seen on this supine examination. Phleboliths are noted in the pelvis. Consolidation and pleural effusion is suggested at the right lung base. The skeletal structures are osteopenic and appear intact. Lumbosacral spondylosi s is noted. IMPRESSION: 1. Nonobstructed abdominal bowel gas pattern. 2. Enteric contrast is present in the colon. 3. Pleural effusion and consolidation is suggested at the right lung base. Electronically signed by: Isiah Joshi M.D. 08/02/2019 8:10 AM
[2019-08-02] MEDS: PANTOprazole 40 MG TAB PO SCH (09:06)
[2019-08-02] MEDS: DOCUSATE SODIUM 100 MG CAP PO SCH (09:06)
[2019-08-02] MEDS: ASPIRIN 81 MG ECTAB PO SCH (09:07)
[2019-08-02] MEDS: ENOXAPARIN INJ 40 MG/0.4 ML SYR SQ SCH (09:07)
[2019-08-02] MEDS: ONDANSETRON INJ 2 MG/ML 2 ML VIAL IV SCH ×2 (09:08→12:30)
[2019-08-02 10:27] VITALS: PULSE 90; O2SAT 94
--- NOTE | 2019-08-03 04:06 | Discharge Summary ---
ADMISSION DIAGNOSIS: Hiatal hernia. DISCHARGE DIAGNOSES: Hiatal hernia, status post surgical repair. HOSPITAL COURSE: Ms. Castro is a pleasant 68-year-old female who was evaluated by Dr. Dietrich as an outpatient. On date of admission, Dr. Dietrich took her to the operating room and he performed a robotic assisted laparoscopic repair of her hiatal hernia. Postoperatively, immediately she was noted to have a pneumothorax on chest x-ray and this was felt to be due to CO2 insufflation. A chest x-ray was performed on postoperative day #1, which showed resolution of her pneumothorax. She did not require a chest tube. She had a barium swallow evaluation on postop day #1 and it showed delayed contrast exiting from the esophagus as well as the stomach. No contrast extravasation was noted. A KUB was performed later that day that did show that the contrast material was exiting the stomach. She had followup chest x-ray and KUB on postoperative day #2, which again showed no pneumothorax and it showed the contrast was traveling through her stomach and it was now in her colon. The patient's postoperative course was only complicated by some hypoxemia and she was successfully weaned off oxygen. A 2-step exercise was performed and this did not reveal that she required oxygen at home and she was deemed stable for discharge home on postoperative day #2. DISCHARGE MEDICATIONS: All of her home medications were the same and she was provided with prescriptions for Reglan 5 mg with meals and at bedtime and Zofran 4 mg Sublingual every 4-6 hours as needed for nausea and vomiting. DISCHARGE INSTRUCTIONS: Other discharge instructions include the patient was told not to drive until cleared by Dr. Dietrich that she could shower in 3 days after removing her surgical dressings prior to showering on that day, but not take any tub baths. She was told that the office will call her for a 1-week followup appointment. In addition, the patient was told that she could not consume any foods that require chewing including but not limited to bread meat or anything else that require chewing and she should maintain a full-liquid diet until cleared otherwise by Dr. Dietrich. Again, she was discharged home on postoperative day #2.
--- NOTE | 2019-08-08 06:02 | Coding Query ---
CODING QUERY To promote full compliance with coding requirements relating to patient care, provider participation is requested in all cases of furnace tender uncertainty. Please assist us with the question(s) below: Coding Question(s): Patient admitted for hiatal hernia repair. Postop noted to have a pneumothorax due to C02 insufflation. Please check below the phrase that describes the pneumothorax. Thank you. Roberth Nina, [facility] Physician's Response(s): The pneumothorax is a complication of the Operative procedure X___ The pneumothorax is an expected occurrence of the Operative procedure Cannot clinically correlelate if the pneumothorax is a complication or expected occurrence of the Procedure Other/ Please document: Principal Diagnosis: "that condition established after study, to be chiefly responsible for occasioning the admission of the patient to the hospital for care." Co-Existing Principal Diagnosis: "when two or more diagnoses equally meet the criteria for principal diagnosis as determined by the circumstances of admission, diagnostic work up, and/or therapy provided, and the Alphabetic Index, Tabular List, or another coding guideline does not provide sequencing direction, any one of the diagnoses may be sequenced first." "When the physician has documented what appears to be a current diagnosis in the body of the record, but has not included the diagnosis in the final diagnostic statement, the physician should be asked whether the diagnosis should be added." (Source [facility] 2 QTR90. p3-4) LACYD
== END 2019-08-02 13:14 | disposition home or self-care (01) | DRG 327 ==
LOC: ASU 07:34 → 3W 07:34

== ENCOUNTER 2021-04-29 09:56 | Observation (INO) ==
--- NOTE | 2021-04-01 16:26 | PAT Medication Instructions ---
Medication Instructions Date of Service April 01, 2021 Home Medications Medication Instructions Recorded hydrocortisone 2.5 % topical cream 1 appln TOP BID PRN #20 gm 08/27/19 lorazepam 0.5 mg tablet (Ativan) 0.5 mg PO BID PRN #60 tab 11/08/19 simvastatin 20 mg tablet 20 mg PO QPM #90 tab 08/12/20 lisinopril 10 1 tab PO QAM #90 tab 08/18/20 mg-hydrochlorothiazide 12.5 mg tablet famotidine 20 mg tablet 20 mg PO HS #30 tab 01/05/21 albuterol sulfate 90 mcg/actuation 2 puff INHALATION Q4H PRN #18 gm 02/12/21 aerosol inhaler duloxetine 40 mg capsule,delayed 40 mg PO BID #180 cap 02/19/21 release gabapentin 100 mg capsule 100 mg PO HS #30 cap 03/19/21 clindamycin HCl 150 mg capsule 600 mg PO UD PRN ascorbic acid (vitamin C) 500 mg tablet 500 mg PO QAM aspirin 81 mg tablet,delayed release 81 mg PO QPM meclizine 25 mg tablet 25 mg PO TID PRN acetaminophen 500 mg tablet (Acetaminophen Extra Strength) 1,000 mg PO DAILY PRN hydrocortisone 2.5 % topical cream 1 appln TOP BID PRN lorazepam 0.5 mg tablet (Ativan) 0.5 mg PO BID PRN diclofenac sodium 1 % topical gel 2 gm TOP QID PRN triamcinolone acetonide 0.1 % topical ointment 1 appln TOPICAL HS PRN simvastatin 20 mg tablet 20 mg PO QPM lisinopril 10 mg-hydrochlorothiazide 12.5 mg tablet 1 tab PO QAM cholecalciferol (vitamin D3) 25 mcg (1,000 unit) capsule 25 mcg PO QAM famotidine 20 mg tablet 20 mg PO HS albuterol sulfate 90 mcg/actuation aerosol inhaler 2 puff INHALATION Q4H PRN duloxetine 40 mg capsule,delayed release 40 mg PO BID gabapentin 100 mg capsule 100 mg PO HS multivitamin 1 tab PO QAM pantoprazole 40 mg tablet,delayed release 40 mg PO QAM Continue as directed clindamycin HCl 150 mg capsule 600 mg PO UD PRN (prior to dental procedure) ASK your prescriber and surgeon aspirin 81 mg tablet,delayed release 81 mg PO QPM STOP taking 24 hours before surgery hydrocortisone 2.5 % topical cream 1 appln TOP BID PRN diclofenac sodium 1 % topical gel 2 gm TOP QID PRN triamcinolone acetonide 0.1 % topical ointment 1 appln TOPICAL HS PRN DO NOT take the morning of surgery ascorbic acid (vitamin C) 500 mg tablet 500 mg PO QAM lisinopril 10 mg-hydrochlorothiazide 12.5 mg tablet 1 tab PO QAM cholecalciferol (vitamin D3) 25 mcg (1,000 unit) capsule 25 mcg PO QAM multivitamin 1 tab PO QAM Take morning of surgery With a small sip of water, OTHERWISE NOTHING TO EAT OR DRINK AFTER MIDNIGHT: meclizine 25 mg tablet 25 mg PO TID PRN (if needed) acetaminophen 500 mg tablet (Acetaminophen Extra Strength) 1,000 mg PO DAILY PRN (okay to take up to 4 hours prior to surgery if needed) lorazepam 0.5 mg tablet (Ativan) 0.5 mg PO BID PRN (if needed) albuterol sulfate 90 mcg/actuation aerosol inhaler 2 puff INHALATION Q4H PRN (use if needed; please bring rescue inhaler with you to hospital day of surgery if possible) duloxetine 40 mg capsule,delayed release 40 mg PO BID pantoprazole 40 mg tablet,delayed release 40 mg PO QAM Take evening before surgery meclizine 25 mg tablet 25 mg PO TID PRN (if needed) acetaminophen 500 mg tablet (Acetaminophen Extra Strength) 1,000 mg PO DAILY PRN (if needed) lorazepam 0.5 mg tablet (Ativan) 0.5 mg PO BID PRN (if needed) simvastatin 20 mg tablet 20 mg PO QPM famotidine 20 mg tablet 20 mg PO HS albuterol sulfate 90 mcg/actuation aerosol inhaler 2 puff INHALATION Q4H PRN (if needed) duloxetine 40 mg capsule,delayed release 40 mg PO BID gabapentin 100 mg capsule 100 mg PO HS Other Notes If you have any questions please call us at [phone] or [phone] or [phone] or [phone]
--- NOTE | 2021-04-06 11:54 | Anesthesiology Consultation ---
Date of Service April 06, 2021 Assessment & Plan (1) Encounter for pre-operative examination: - COVID screening: Per assessment on 04/06: Travel screen- returned from travel to [facility] (03/30-04/02): stayed with family. Patient vaccinated. Return from [facility] > 5 days prior to preop COVID testing. No known COVID-19 positive contacts or current COVID-19 related symptoms. Surgeon arranging preop COVID testing. Awaiting results. - S/P Robotic-Assisted Laparoscopic Hiatal Hernia Repair (07/31/19): Grade view 2, MAC#3, ETT 7.5 at [facility] Chart Review Chart Review: Acceptable Risk for Surgery (pending surgeon-ordered PCP clearance) and Patient seen in Pre Admission Testing Teaching & Discussion Pre-Anesthesia Teaching/Discussion Notes: Instructed NPO after midnight before surgery,except medications with 15 cc of water. Medication instructions provided according to the PAT guidelines. History Surgery Operation Date: 04/29/21 07:15 Proposed Procedures p Left Knee Poly Exchange, Patellar Button Exchange, Excision Heterotopic Bone - Steve Mccarthy MD Height/Weight Height: 5 ft 6 in Weight: 73.3 kg Allergies Allergy/AdvReac Type Severity Reaction Status Date / Time Penicillins Allergy Mild Rash Verified 04/03/21 16:21 oxycodone AdvReac Intermediate Nausea Verified 04/01/21 13:51 tramadol AdvReac Mild Nausea, Verified 04/03/21 16:21 upset stomach Medications Home Medications Medication Instructions Recorded Confirmed Last Taken clindamycin HCl 150 mg capsule 600 mg PO UD PRN cap 06/08/19 04/01/21 03/12/20 ascorbic acid (vitamin C) 500 mg 500 mg PO QAM 06/18/19 04/01/21 06/08/20 08:00 tablet aspirin 81 mg tablet,delayed 81 mg PO QPM 06/18/19 04/01/21 06/07/20 release meclizine 25 mg tablet 25 mg PO TID PRN 06/18/19 04/01/21 06/02/20 acetaminophen 500 mg tablet 1,000 mg PO DAILY PRN 07/09/19 04/01/21 06/08/20 (Acetaminophen Extra Strength) hydrocortisone 2.5 % topical cream 1 appln TOP BID PRN #20 gm 08/27/19 04/01/21 Unknown lorazepam 0.5 mg tablet (Ativan) 0.5 mg PO BID PRN #60 tab 11/08/19 04/01/21 06/06/20 diclofenac sodium 1 % topical gel 2 gm TOP QID PRN 06/02/20 04/01/21 Unknown triamcinolone acetonide 0.1 % 1 appln TOPICAL HS PRN 06/02/20 04/01/21 Unknown topical ointment simvastatin 20 mg tablet 20 mg PO QPM #90 tab 08/12/20 04/01/21 Unknown lisinopril 10 1 tab PO QAM #90 tab 08/18/20 04/01/21 Unknown mg-hydrochlorothiazide 12.5 mg tablet cholecalciferol (vitamin D3) 25 25 mcg PO QAM 12/18/20 04/01/21 Unknown mcg (1,000 unit) capsule famotidine 20 mg tablet 20 mg PO HS #30 tab 01/05/21 04/01/21 Unknown albuterol sulfate 90 mcg/actuation 2 puff INHALATION Q4H PRN #18 gm 02/12/21 04/01/21 Unknown aerosol inhaler duloxetine 40 mg capsule,delayed 40 mg PO BID #180 cap 02/19/21 04/01/21 Unknown release gabapentin 100 mg capsule 100 mg PO HS #30 cap 03/19/21 04/01/21 Unknown multivitamin 1 tab PO QAM 04/01/21 04/01/21 Unknown pantoprazole 40 mg tablet,delayed 40 mg PO QAM 04/01/21 04/01/21 Unknown release Past Medical History Medical History Arthritis Depression Dyslipidemia GERD (gastroesophageal reflux disease) occasional Hiatal hernia History of blood clots LUE several years ago- ? superficial, no issues since History of gastric ulcer Several years ago HTN (hypertension) Osteoarthritis Psoriasis Spinal stenosis Exercise / Class Metabolic Activity II 4-5 Yardwork/Stairs/Walk up hill (one FS (no CP, no SOB)) Past Family History Family History Father Heart disease Myocardial infarction Hypertension Grandfather (Maternal) Heart disease Grandmother Heart disease Sister Diabetes Mother Diabetes Heart disease Family history of reaction to anesthesia difficulty waking Stroke Aunt Diabetes Grandmother (Maternal) Myocardial infarction Family/Other Diabetes Grandfather (Paternal) Myocardial infarction Grandmother (Paternal) Myocardial infarction Other Nausea and vomiting after administration of anesthetic agent Denies family history of Ovarian cancer Prostate cancer Breast cancer Colorectal cancer Past Surgical History Surgical History History of carpal tunnel surgery of left wrist History of colonoscopy History of dilatation and curettage History of esophagogastroduodenoscopy (EGD) EGD (06/09/20): MAC at [facility] History of repair of hiatal hernia Robotic-Assisted Laparoscopic Hiatal Hernia Repair (07/31/19): Grade view 2, MAC#3, ETT 7.5 at [facility] History of repair of right rotator cuff History of tonsillectomy and adenoidectomy History of tooth extraction History of total left knee replacement (TKR) History of total right knee replacement (TKR) History of wisdom tooth extraction Status post left foot surgery planter fascitis Past Anesthesia History Other Patient: Post-op pneumothorax after hiatal hernia repair (2019; [facility]). Per discharge summary (08/01/19): "On date of admission, Dr. Dietrich took her to the operating room and he performed a robotic assisted laparoscopic repair of her hiatal hernia. Postoperatively, immediately she was noted to have a pneumothorax on chest x-ray and this was felt to be due to CO2 insufflation. A chest x-ray was performed on postoperative day #1,which showed resolution of her pneumothorax. She did not require a chest tube. She had a barium swallow evaluation on postop day #1 and it showed delayed contrast exiting from the esophagus as well as the stomach. No contrast extravasation was noted. A KUB was performed later that day that did show that the contrast material was exiting the stomach. She had followup chest x-ray and KUB on postoperative day #2, which again showed no pneumothorax and it showed the contrast was traveling through her stomach and it was now in her colon. The patient's postoperative course was only complicated by some hypoxemia and she was successfully weaned off oxygen. A 2-step exercise was performed and this did not reveal that she required oxygen at home and she was deemed stable for discharge home on postoperative day #2." Mother: "slow to wake" History of PONV History of PONV (improvement with pretreatment used) Social History Smoking Status: Former smoker tobacco type: cigarettes Do You Dip or Chew Tobacco: No Smoking End Date: Quit 1998 Hx Alcohol Use: No Hx Substance Use: No substance use type: does not use Review of Systems No definitive asthma/copd diagnosis. Occasional wheezing, chronic, unchanged- reason for inhaler per pt. No issues x 2 years. Patient denies chest pain, shortness of breath, dyspnea on exertion, fever, chills, cough, palpitations. Physical Exam Vital Signs VITALS BP 102/70 P 72 TEMP 98.4 SP02 95%RA RESP 16 PHYSICAL Full cervical extension range of motion. Full TMJ range of motion. TMD 3 finger breaths Mallampati Score 1 Dentition: missing sides/molars Lungs: clear throughout to auscultation Cardiac: regular rate and rhythm, no murmurs noted Spine: normal Carotid arteries: negative bruit Extremities: no edema Lab Results Anesthesia Preop Results Results Anesthesia Widget: WBC 6.19 K/uL (4.8-10.8) 04/06/21 Hgb 12.5 g/dL (12.0-16.0) 04/06/21 Hct 38.3 % (37-47) 04/06/21 Plt 258 K/uL (130-400) 04/06/21 Na 141 mmol/L (136-145) 04/06/21 K 3.8 mmol/L (3.5-5.1) 04/06/21 Cl 109 mmol/L (98-107) H 04/06/21 CO2 26 mmol/L (21-32) 04/06/21 BUN 18 mg/dl (7-18) 04/06/21 Creat 0.66 mg/dl (0.6-1.2) 04/06/21 Glucose Level 150 mg/dl (70-99) H 04/06/21 PT 10.3 Seconds (9.0-12.0) 04/06/21 PTT 25.6 Seconds (21.0-31.0) 04/06/21 INR 1.0 (0.9-1.1) 04/06/21 HA1c 5.9 % (4.5-5.6) H 04/06/21 Urine Color Dark Yellow 04/06/21 Urine Appearance Clear (Clear) 04/06/21 Urine pH 5.0 (4.5-7.5) 04/06/21 Urine Specific [place] 1.026 (1.000-1.030) 04/06/21 Urine Protein Negative (Negative) 04/06/21 Urine Glucose (UA) Negative (Negative) 04/06/21 Urine Ketones Negative (Negative) 04/06/21 Urine Blood Negative (Negative) 04/06/21 Urine Nitrite Negative (Negative) 04/06/21 Urine Bilirubin Negative (Negative) 04/06/21 Urine Urobilinogen Negative (Negative) 04/06/21 Urine Leukocyte Esterase Trace (Negative) H 04/06/21 Urine WBC (Auto) 1-5 /hpf (0-5) 04/06/21 Urine RBC (Auto) 0-4 /hpf (0-4) 04/06/21 Urine Hyaline Casts (Auto) 1-5 /lpf (0-5) 04/06/21 Urine Epithelial Cells (Auto) 10-20 /lpf (0-5) H 04/06/21 Urine Bacteria (Auto) Negative (Negative) 04/06/21 Blood Type O Positive 04/06/21 Antibody Screen NEGATIVE 04/06/21 Testing Electrocardiogram Date: 04/06/21 NSR at 71bpm. LAD. No significant change compared to 09/22/10 per soap inspector review. Chest X-Ray Date: 04/06/21 FINDINGS: Cardiac silhouette is enlarged. No pneumothorax, pleural effusion, airspace consolidation or overt pulmonary edema. Mild linear subsegmental atelectasis/scarring of the lung bases. Degenerative changes of the shoulders and spine. Lumbar levoscoliosis. Small hiatal hernia redemonstrated. IMPRESSION: No acute process. Stress Test Date: 08/24/19 Type: DSE Negative dobutamine stress echo/EKG for ischemia 99% MPHR. Occasional PVCs/PACs with stress. LVEF 50 to 54%. Grade 1 diastolic dysfunction. Mild AV sclerosis.
--- NOTE | 2021-04-26 19:01 | History & Physical Report ---
Date of Service April 26, 2021 Assessment & Plan (1) Instability of left knee joint: Plan: Treatment options discussed with patient. History and exam consistent with a fractured polyethylene post. She would like to proceed with surgical intervention. Risks, benefits and alternatives to surgery including but not limited to infection, DVT, pain, stiffness, need for revision surgery, damage to blood vessels, damage to nerves, PE, , were discussed with the patient and they wish to proceed. Plan on left knee poly exchange, excision heterotopic bone patella, possible revision patella button. Surgery scheduled for 04/29/21 at [facility]. All questions answered. Will plan on home with OPPT post discharge, as well as ASA 81mg BID x 1 mo post op for DVT prophylaxis. History of Present Illness Chief Complaint: Left knee pain and instability Primary Care Provider: Mina Beckham DO P70 year old female with PMHx significant for HTN, high cholesterol, GERD, and anxiety presents with left knee pain and instability. She has noticed increased giving out and instability to her left knee affecting her daily activities and l eisure activities. Feels as if something is floating around in her knee. 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 Primary Total knee was done by Dr. Diaz in 1998. Patient denies headaches, sweats, fevers, chills, double vision, blurred vision, cough, sore throat, dysphagia, chest pain, sob, wheezing, n/v/d/c, numbness, tingling, fatigue, urinary symptoms, mood disorders. ROS positive for right knee pain and stiffness. Allergies Allergy/AdvReac Type Severity Reaction Status Date / Time Penicillins Allergy Mild Rash Verified 04/21/21 15:06 oxycodone AdvReac Intermediate Nausea Verified 04/21/21 15:06 tramadol AdvReac Mild Nausea, Verified 04/21/21 15:06 upset stomach Home Medications Medication Instructions Recorded Confirmed Type clindamycin HCl 150 mg capsule 600 mg PO UD PRN cap 06/08/19 04/21/21 History ascorbic acid (vitamin C) 500 mg 500 mg PO QAM 06/18/19 04/21/21 History tablet aspirin 81 mg tablet,delayed 81 mg PO QPM 06/18/19 04/21/21 History release meclizine 25 mg tablet 25 mg PO TID PRN 06/18/19 04/21/21 History acetaminophen 500 mg tablet 1,000 mg PO DAILY PRN 07/09/19 04/21/21 History (Acetaminophen Extra Strength) hydrocortisone 2.5 % topical cream 1 appln TOP BID PRN #20 gm 08/27/19 04/21/21 Rx lorazepam 0.5 mg tablet (Ativan) 0.5 mg PO BID PRN #60 tab 11/08/19 04/21/21 Rx diclofenac sodium 1 % topical gel 2 gm TOP QID PRN 06/02/20 04/21/21 History triamcinolone acetonide 0.1 % 1 appln TOPICAL HS PRN 06/02/20 04/21/21 History topical ointment simvastatin 20 mg tablet 20 mg PO QPM #90 tab 08/12/20 04/21/21 Rx lisinopril 10 1 tab PO QAM #90 tab 08/18/20 04/21/21 Rx mg-hydrochlorothiazide 12.5 mg tablet cholecalciferol (vitamin D3) 25 25 mcg PO QAM 12/18/20 04/21/21 History mcg (1,000 unit) capsule famotidine 20 mg tablet 20 mg PO HS #30 tab 01/05/21 04/21/21 Rx albuterol sulfate 90 mcg/actuation 2 puff INHALATION Q4H PRN #18 gm 02/12/21 04/21/21 Rx aerosol inhaler gabapentin 100 mg capsule 100 mg PO HS #30 cap 03/19/21 04/21/21 Rx multivitamin 1 tab PO QAM 04/01/21 04/21/21 History pantoprazole 40 mg tablet,delayed 40 mg PO QAM 04/01/21 04/21/21 History release duloxetine 40 mg capsule,delayed 40 mg PO BID #180 cap 04/20/21 04/21/21 Rx release Past Med/Surg History Medical History Arthritis Depression Dyslipidemia GERD (gastroesophageal reflux disease) occasional Hiatal hernia History of blood clots LUE several years ago- ? superficial, no issues since History of gastric ulcer Several years ago HTN (hypertension) Osteoarthritis Psoriasis Spinal stenosis Surgical History History of carpal tunnel surgery of left wrist History of colonoscopy History of dilatation and curettage History of esophagogastroduodenoscopy (EGD) EGD (06/09/20): MAC at [facility] History of repair of hiatal hernia Robotic-Assisted Laparoscopic Hiatal Hernia Repair (07/31/19): Grade view 2, MAC#3, ETT 7.5 at [facility] History of repair of right rotator cuff History of tonsillectomy and adenoidectomy History of tooth extraction History of total left knee replacement (TKR) History of total right knee replacement (TKR) History of wisdom tooth extraction Status post left foot surgery planter fascitis Family History Father Heart disease Myocardial infarction Hypertension Grandfather (Maternal) Heart disease Grandmother Heart disease Sister Diabetes Mother Diabetes Heart disease Family history of reaction to anesthesia difficulty waking Stroke Aunt Diabetes Grandmother (Maternal) Myocardial infarction Family/Other Diabetes Grandfather (Paternal) Myocardial infarction Grandmother (Paternal) Myocardial infarction Other Nausea and vomiting after administration of anesthetic agent Denies family history of Ovarian cancer Prostate cancer Breast cancer Colorectal cancer Social History Smoking Status: Former smoker Age Started Using Tobacco: 14; Age Quit Using Tobacco: 48; packs per day: 0.5; Second Hand Exposure: No; Hx Alcohol Use: No Hx Substance Use: No Preferred Language: Yakut Communication Ability: Effective Visual Impairment: No Limitations Hearing Ability: Normal Boiler Tenders Supervisor Required: No Beliefs That Will Affect Care: None marital status: Single Current Living Situation: Family and Other Current Living Situation Comment: Lives with significant other, son and 2 grandchildren current occupational status: retired current occupation: [employer] teacher Feels Safe at Home: Yes Childhood Exposure to Second-Hand Smoke: No caffeine: Yes (coffee rarely) during the past year weight has: remained stable Dental Care, Regularly: Yes Physical Activity Frequency: Daily Physical Activity Frequency Comment: house work/building shed Seatbelt Use: always Sunscreen Use: Yes Assistive Devices: Glasses Review of Systems All systems reviewed & are unremarkable except as noted in HPI & below Physical Exam Constitutional: well developed and well nourished; no acute distress Eyes: PERRL, conjunctivae normal, anicteric sclerae ENMT: external ear and nose normal, oropharynx normal Neck: trachea midline, no thyromegaly Respiratory: normal respiratory effort, lungs clear to auscultation Cardiovascular: RRR, no murmur, no edema Musculoskeletal: Left knee: well healed surgical scars. Mild effusion. Mild tenderness diffusely. Positive posterior drawer with increased laxity to valgus and varus stress. ROM 0-130 degrees. Subluxation with posterior drawer with reduction with knee extension. Skin: no rashes, warm and dry Neurologic: patellar DTR's 2+ bilat, sensation intact Psychiatric: A+Ox3, euthymic affect Results & Data ([facility]) Diagnostic Findings Left knee radiographs demonstrate left total knee arthroplasty with well fixed components, heterotopic bone formation lateral patella. Bone scan negative for loosening.
[~2021-04-29 09:56] MED LIST changes: +ACETAMINOPHEN 500 MG TAB PO SCH; +BUPIVACAINE 0.5 % 5 MG/1 ML PF 10ML VIAL ONE; +CeleBREX 200 MG CAP PO SCH; +FAMOTIDINE 20 MG TAB PO SCH; +GABAPENTIN 300 MG CAP PO SCH; -LR 15ML/HR IV SCH; +LR 500ML BOLUS, THEN 15ML/HR IV SCH; +METOCLOPRAMIDE HCL 10 MG TABLET PO SCH; +ROPIVACAINE 0.5% 5 MG/ML 30 ML VIAL ONE; +ROPIVACAINE 0.5% HCL/PF 150 MG, BUPIVACAINE 0.75% MPF 20 ML, EPINEPHrine 30MG/30ML (OR ... INSTIL SCH; +TRANEXAMIC ACID 1,000 MG **IV Intra-op IV SCH; +TRANEXAMIC ACID 1,000 MG **IV Pre-op IV SCH; +VANCOMYCIN HCL 1,000 MG/270 ML BAG IV SCH; +dexAMETHasone 4 MG TAB PO SCH
[2021-04-29] MEDS ORDERED: GLYCOPYRROLATE 0.2 MG/ML VIAL ONE (12:01)
[2021-04-29] MEDS ORDERED: fentaNYL citrate 100 MCG/2 ML VIAL ONE (12:01)
[2021-04-29] MEDS ORDERED: LIDOCAINE 2% 2 ML VIAL/AMP(20MG/ML) INFIL ONE ×2 (12:01→15:51)
[2021-04-29] MEDS ORDERED: DEXAMETHASONE SOD INJ 4 MG/ML VIAL ONE (12:01)
[2021-04-29] MEDS ORDERED: PROPOFOL IV EMULSION 10 MG/ML 20 ML VIAL IV ONE ×3 (12:01→15:51)
[2021-04-29] MEDS ORDERED: ONDANSETRON INJ 2 MG/ML 2 ML VIAL ONE (12:01)
[2021-04-29] MEDS ORDERED: MIDAZOLAM HCL 1 MG/ML 2ML VIAL ONE ×2 (12:01→13:07)
[2021-04-29] MEDS ORDERED: ONDANSETRON INJ 2 MG/ML 2 ML VIAL IV PRN ×2 (13:00→18:08)
[2021-04-29] MEDS ORDERED: ePHEDrine sulfate 50 MG/ML AMP IV PRN (13:00)
[2021-04-29] MEDS ORDERED: HYDROmorphone INJ 1 MG/ML SYRINGE IV PRN (13:00)
[2021-04-29] MEDS ORDERED: ATROPINE SULFATE 0.1 MG/ML 10ML SYR IV PRN (13:00)
[2021-04-29] MEDS ORDERED: ORTHO JOINT ANESTHETIC ONE (13:12)
--- NOTE | 2021-04-29 13:30 | History & Physical Bridge Note ---
Date of Service April 29, 2021 History & Physical Bridge Note I have examined the patient, reviewed the History & Physical and in the interval since the performance of the History & Physical I have noted the following changes of clinical significance: no changes noted
--- NOTE | 2021-04-29 16:41 | Post Operative Brief Note ---
Immediate Post Op Note v1 Date of Surgery April 29, 2021 Pre & Post Diagnosis Operation Date: 04/29/21 12:15 Pre-Op Diagnosis: Left Knee Fractured tibial polyethylene post with knee instability status post total knee replacement with heterotopic bone around patella component Post-Op Diagnosis: Left Knee Fractured tibial polyethylene post with knee instability status post total knee replacement and significant polyethylene wear patella component with heterotopic bone around patella component with chronic synovitis of the knee with multiple polyethylene debris fragments. I identified the patient and participated in the time-out.: Yes Procedure Operation Date: 04/29/21 12:15 Actual Procedures p Left Knee tibial polyethylene exchange and revision patella polyethylene with excision Heterotopic Bone and synovectomy(Left) - Steve Mccarthy MD Surgeon Steve Mccarthy MD Warp Clamper Alf MATTHEWS Estimated Blood Loss 5 Findings Consistent with Post-Op Diagnosis Specimens Tibial polyethylene including fracture post and patella polyethylene Synovium knee joint Drains Hemovac Drain (Double) Anesthesia Type MAC Spinal Regional Complications none Disposition Disposition: Recovery Room Overlapping Procedure I was immediately available: during the entire case.
--- NOTE | 2021-04-29 16:46 | XRay Report ---
LEFT KNEE 2 VIEWS History: Left total knee arthroplasty. Degenerative arthritis. Postop. FINDINGS: The patient is status post a left total knee arthroplasty. The hardware is intact. No fract ure or dislocation. Skin tania and surgical drains are in place. IMPRESSION: Left total knee arthroplasty. No evidence for hardware complication. ACT 112: Negative or not required by law. Electronically signed by: Oj Lauren M.D. 04/29/2021 4:45 PM
--- NOTE | 2021-04-29 17:44 | Anesthesiology Progress Note ---
Date of Service April 29, 2021 Anesthesia Post Procedure Vital Signs Vital Signs: Temp Pulse Pulse Resp BP Pulse Ox 04/29/21 17:15 36.1 C L 55 L 15 129/73 94 04/29/21 17:00 36.1 C L 53 L 18 134/76 93 04/29/21 16:50 64 19 146/84 H 96 04/29/21 16:40 65 18 142/87 H 99 04/29/21 16:30 65 17 130/76 99 04/29/21 16:20 36.3 C L 72 18 124/72 99 04/29/21 10:47 36.7 C 67 20 128/88 97 Transfer of Care Handoff Completed per policy Notes Mental Status: alert / awake / arousable Patient Amnestic to Procedure: Yes Nausea / Vomiting: adequately controlled Pain: adequately controlled Airway Patency, RR, SpO2: stable & adequate BP & HR: stable & adequate Hydration State: stable & adequate Anesthetic Complications: no major complications apparent
[2021-04-29] MEDS ORDERED: bisacodyL 10 MG SUPP PR PRN (18:08)
[2021-04-29] MEDS ORDERED: HYDROmorphone INJ 0.5 MG/0.5 ML SYR IV PRN (18:08)
[2021-04-29] MEDS ORDERED: NALOXONE HCL 0.4 MG/1 ML VIAL/CARP IV PRN (18:08)
[2021-04-29] MEDS ORDERED: ALBUTEROL HFA 8 GM INHALER INH PRN (18:08)
[2021-04-29] MEDS ORDERED: TRIAMCINOLONE ACET 0.1% OINT 15 GM TUBE TOP PRN (18:08)
[2021-04-29] MEDS ORDERED: LORazepam 0.5 MG TAB PO PRN (18:08)
[2021-04-29] MEDS ORDERED: HYDROCORTISONE 2.5% CR 30 GM TUBE EXT PRN (18:08)
[2021-04-29] MEDS ORDERED: SODIUM CHLORIDE 0.9% 1000ML 1,000 ML IV SCH (18:08)
[2021-04-29] MEDS ORDERED: METOCLOPRAMIDE HCL INJ 5 MG/ML 2 ML VIAL IV PRN (18:08)
[2021-04-29] MEDS ORDERED: MAGNESIUM HYDROXIDE SUSP 30 ML UDC PO PRN (18:08)
[2021-04-29] MEDS ORDERED: VANCOMYCIN CONSULT ACTIVE PRN (18:08)
[2021-04-29] MEDS ORDERED: MECLIZINE HCL 25 MG TAB PO PRN (18:13)
--- NOTE | 2021-04-29 19:14 | Hospitalist Consultation ---
Date of Consultation April 29, 2021 Assessment & Plan (1) Instability of left knee joint: Patient status post 04/29/2021 left knee polyexchange, patellar button exchange, excision of heterotropic bone, and synovectomy by Dr. Bahena. Postoperative pain control is appropriate (2) HTN (hypertension): Patient typically takes lisinopril/hydrochlorothiazide 06/23.5 this will be restarted on 05/01 as blood pressure slightly low postoperatively (3) Dyslipidemia: Zocor 20 will be continued (4) Depression: Patient takes duloxetine and has some as needed lorazepam for situational anxiety these are continued History of Present Illness Attending Physician: Steve Mccarthy MD History of Present Illness Patient underwent left knee polyexchange patellar button exchange excision of hypertrophic bone and synovectomy on 04/[address] Bahena. We are medical consultation managing her hypertension depression dyslipidemia. Patient started on her home medications appropriately. Patient's lisinopril hydrochlorothiazide will be delayed to begin till 05/01 due to postoperative hypotension. Patient will be on aspirin twice daily chosen for DVT prevention per Dr. Bahena service. Allergies Allergy/AdvReac Type Severity Reaction Status Date / Time Penicillins Allergy Mild Rash Verified 04/29/21 10:33 oxycodone AdvReac Intermediate Nausea Verified 04/29/21 10:33 tramadol AdvReac Mild Nausea, Verified 04/29/21 10:33 upset stomach Home Medications Medication Instructions Recorded Confirmed Type clindamycin HCl 150 mg capsule 600 mg PO UD PRN cap 06/08/19 04/29/21 History ascorbic acid (vitamin C) 500 mg 500 mg PO QAM 06/18/19 04/29/21 History tablet aspirin 81 mg tablet,delayed 81 mg PO QPM 06/18/19 04/29/21 History release meclizine 25 mg tablet 25 mg PO TID PRN 06/18/19 04/29/21 History acetaminophen 500 mg tablet 1,000 mg PO DAILY PRN 07/09/19 04/29/21 History (Acetaminophen Extra Strength) hydrocortisone 2.5 % topical cream 1 appln TOP BID PRN #20 gm 08/27/19 04/29/21 Rx lorazepam 0.5 mg tablet (Ativan) 0.5 mg PO BID PRN #60 tab 11/08/19 04/29/21 Rx diclofenac sodium 1 % topical gel 2 gm TOP QID PRN 06/02/20 04/29/21 History triamcinolone acetonide 0.1 % 1 appln TOPICAL HS PRN 06/02/20 04/29/21 History topical ointment simvastatin 20 mg tablet 20 mg PO QPM #90 tab 08/12/20 04/29/21 Rx lisinopril 10 1 tab PO QAM #90 tab 08/18/20 04/29/21 Rx mg-hydrochlorothiazide 12.5 mg tablet cholecalciferol (vitamin D3) 25 25 mcg PO QAM 12/18/20 04/29/21 History mcg (1,000 unit) capsule famotidine 20 mg tablet 20 mg PO HS #30 tab 01/05/21 04/29/21 Rx albuterol sulfate 90 mcg/actuation 2 puff INHALATION Q4H PRN #18 gm 02/12/21 04/29/21 Rx aerosol inhaler gabapentin 100 mg capsule 100 mg PO HS #30 cap 03/19/21 04/29/21 Rx multivitamin 1 tab PO QAM 04/01/21 04/29/21 History pantoprazole 40 mg tablet,delayed 40 mg PO QAM 04/01/21 04/29/21 History release duloxetine 40 mg capsule,delayed 40 mg PO BID #180 cap 04/20/21 04/29/21 Rx release Patient History Medical History Arthritis Depression Dyslipidemia GERD (gastroesophageal reflux disease) occasional Hiatal hernia History of blood clots LUE several years ago- ? superficial, no issues since History of gastric ulcer Several years ago HTN (hypertension) Osteoarthritis Psoriasis Spinal stenosis Surgical History History of carpal tunnel surgery of left wrist History of colonoscopy History of dilatation and curettage History of esophagogastroduodenoscopy (EGD) EGD (06/09/20): MAC at [facility] History of repair of hiatal hernia Robotic-Assisted Laparoscopic Hiatal Hernia Repair (07/31/19): Grade view 2, MAC#3, ETT 7.5 at [facility] History of repair of right rotator cuff History of tonsillectomy and adenoidectomy History of tooth extraction History of total left knee replacement (TKR) History of total right knee replacement (TKR) History of wisdom tooth extraction Status post left foot surgery planter fascitis Family History Father Heart disease Myocardial infarction Hypertension Grandfather (Maternal) Heart disease Grandmother Heart disease Sister Diabetes Mother Diabetes Heart disease Family history of reaction to anesthesia difficulty waking Stroke Aunt Diabetes Grandmother (Maternal) Myocardial infarction Family/Other Diabetes Grandfather (Paternal) Myocardial infarction Grandmother (Paternal) Myocardial infarction Other Nausea and vomiting after administration of anesthetic agent Denies family history of Ovarian cancer Prostate cancer Breast cancer Colorectal cancer Social History Smoking Status: Former smoker Age Started Using Tobacco: 14; Age Quit Using Tobacco: 48; packs per day: 0.5; Smoking End Date: Quit 1998; Second Hand Exposure: No; Do You Dip or Chew Tobacco: No; Hx Alcohol Use: No Hx Substance Use: No Preferred Language: Citizen Of [place] Communication Ability: Effective Visual Impairment: No Limitations Hearing Ability: Normal Telecom Assistant Required: No Beliefs That Will Affect Care: None marital status: Single Current Living Situation: Family and Other Current Living Situation Comment: Lives with significant other, son and 2 grandchildren current occupational status: retired current occupation: [employer] teacher Other Information That Helps Us Care for You: No Feels Safe at Home: Yes Safety Concerns: Feels Safe At This Time Childhood Exposure to Second-Hand Smoke: No caffeine: Yes (coffee rarely) during the past year weight has: remained stable Dental Care, Regularly: Yes Physical Activity Frequency: Daily Physical Activity Frequency Comment: house work/building shed Seatbelt Use: always Sunscreen Use: Yes Assistive Devices: Glasses Review of Systems Review of Systems: Mild distress and fatigue no headache, no visual changes no speech or swallowing issues no chest pain, pressure or palpitations no shortness of breath, cough or wheezes no abdominal pain, nausea or vomiting, diarrhea or constipation no dysuria, hematuria or frequency post operative left knee is still with nerve block but can wiggle toes no back pain, CVA tenderness or radicular pain no bruising, bleeding or rashes no focal signs of weakness or numbness or altered sensation no complaints of anxiety or depression.. Physical Exam Physical Exam: The patient appeared well nourished and normally developed. Vital signs as documented. Head exam is normocephalic atraumatic Neck is without JVD, thyromegaly, or carotid bruits. Lungs are clear to auscultation, no focal loss of breath sounds Cardiac exam, Rhythm is regular.. No murmurs, rubs or gallops. Abdominal exam reveals normal bowel sounds, soft non tender, no masses Extremities are nonedematous and both pedal pulses are present Neurologic exam is alert and oriented, no focal loss of strength or sensation, can feel gross touch Skin is without bruises or rashes Psychologically is without concerns for anxiety or depression Results & Data Results & Data ([facility]) Vital Signs (Past 12 Hours) Vital Signs Temp Pulse Pulse Resp BP BP Pulse Ox 04/29/21 18:28 74 16 108/74 93 04/29/21 18:01 98.2 F 67 16 121/83 96 04/29/21 17:30 98.1 F 60 16 114/73 96 04/29/21 17:15 97.0 F L 55 L 15 129/73 94 04/29/21 17:00 97.0 F L 53 L 18 134/76 93 04/29/21 16:50 64 19 146/84 H 96 04/29/21 16:40 65 18 142/87 H 99 04/29/21 16:30 65 17 130/76 99 04/29/21 16:20 97.3 F L 72 18 124/72 99 04/29/21 10:47 98.1 F 67 20 128/88 97 PG Care Time/CCT Total # of Minutes Spent Total Time Spent with Patient: Total time spent is greater than 50% in coordination of care (as documented) at patient's floor/unit and/or counseling patient: Coding Level of Care Code 81608 Inpt Consult Level 3 Diagnoses HTN (hypertension) I10 Dyslipidemia E78.5 Depression F32.9 Instability of left knee joint M25.362
[2021-04-29] MEDS: ASPIRIN 81 MG ECTAB PO SCH (20:06)
[2021-04-29] MEDS: CeleBREX 200 MG CAP PO SCH (20:06)
[2021-04-29] MEDS: DOCUSATE SODIUM 100 MG CAP PO SCH (20:06)
[2021-04-29] MEDS: DULoxetine HCL 20 MG CAP PO SCH (20:06)
[2021-04-29] MEDS ORDERED: SENNA 8.6 MG TAB PO SCH (21:00)
[2021-04-29] MEDS ORDERED: FAMOTIDINE 20 MG TAB PO SCH (21:00)
[2021-04-29] MEDS ORDERED: GABAPENTIN 100 MG CAP PO SCH (21:00)
[2021-04-29] MEDS ORDERED: SIMVASTATIN 20 MG TAB PO SCH (21:00)
[2021-04-29] MEDS ORDERED: VANCOMYCIN HCL 1,000 MG in SODIUM CHLORIDE 0.9% 250 ML IV SCH (21:00)
--- NOTE | 2021-04-29 22:18 | Operative Report (OR) ---
DATE OF PROCEDURE: 04/29/2021 INDICATIONS FOR THE PROCEDURE: A 70-year-old female who had an index left knee replacement in 1997. She had an Encore total knee replacement. She did well for many years until about 10 years later, s he had a polyethylene post fracture, had a revision by Dr. Diaz, did well again for many years unti l this year when she developed instability and synovitis of her knee. Her exam again is consistent w ith a polyethylene post fracture. She also has some heterotopic bone that has developed around the p atella. No gross loosening of any components. Bone scan negative for loosening with blood tests mar kers negative for infection. Her main complaint is knee instability. On exam, she has unstable knee with posterior drawer consistent with a polyethylene post fracture and she has some varus/valgus in stability. She has failed conservative management. PREOPERATIVE DIAGNOSES: Left knee tibial polyethylene post fracture with instability and heterotopic bone around the patella. POSTOPERATIVE DIAGNOSES: Left knee tibial polyethylene fracture of the post with knee instability an d polyethylene wear of the tibial component and polyethylene wear of the patellar component with hete rotopic bone around the patellar component and chronic synovitis with multiple areas of delaminated p olyethylene debris within the synovial tissue. PROCEDURE: Left knee tibial polyethylene exchange and revision of patella polyethylene component wit h excision of heterotopic bone and synovectomy of the left knee. SURGEON: Steve Mccarthy MD. SECURITY PROJECT MANAGER: Marco Kwan PA-C. ESTIMATED BLOOD LOSS: 5 mL. FINDINGS: Consistent with postoperative diagnosis. SPECIMENS: Tibial polyethylene including fracture post and patellar polyethylene and synovium of the knee joint. DRAINS: Hemovac drain. ANESTHESIA: MAC spinal/regional. COMPLICATIONS: None. DISPOSITION: Recovery room. OVERLAPPING PROCEDURE: None. DESCRIPTION OF OPERATIVE PROCEDURE: The patient was taken to the operating room, anesthetized under spinal MAC regional block anesthesia. A pneumatic tourniquet was placed on the left upper thigh and the left lower extremity was prepped and draped with ChloraPrep in the usual sterile fashion. Exami shira demonstrates she had a full knee extension with little hyperextension and she had instability with varus and valgus stress in mid flexion and had instability with posterior drawer with subluxatio n posteriorly of the tibia under the femur consistent with a fractured polyethylene post. She had fu ll range of motion of the knee. The left lower extremity was then prepped and draped, and elevated, exsanguinated with an Esmarch bandage, and the pneumatic tourniquet was raised to 300 mmHg. The patient had a previous long scar in the anterior knee area and this was partially utilized with a smaller part of the scar used for the incision for this procedure. Skin was incised sharply. Subcu taneous flaps were elevated. An incision was made through the medial retinaculum, extended up into t he mid third of the quadriceps tendon and extended down to medial tibial tubercle. Inspection in the knee joint demonstrated synovial joint effusion with a clear normal-appearing fluid. The synovial t issue itself had chronic synovitis and there was a polyethylene debris imbedded within the synovial t issue in multiple areas throughout the knee. The inspection of the tibial polyethylene demonstrated that a polyethylene post was fractured in 2 pi eces and it was still in the notch area of the femoral component. There was a surface polyethylene w ear on the tibial component. The femoral and tibial metallic components were solid and well fixed. The patella was also solid and well fixed. There was some undermining of the patella with some osteo lysis and there was some heterotopic bone around the superolateral aspect of the patella with very la rge area of heterotopic bone there. The patella itself had a central and marked wear on the patellar component with significant thinning of the surface delaminating fragments that were peeling off the surface of the patellar component more toward the medial side. First approach was used to irrigate out the knee with pulsatile lavage saline solution. Then, I did a thorough synovectomy of the knee using electrocautery type synovectomy removing the thick synovium in the gutters, suprapatellar pouch, and then the scarred infrapatellar fat pad that was resected and there was some imbedded polyethylene within the fat pad area that was also removed. A careful subpe riosteal peel lateral release was performed around the patella and around the heterotopic bone area, and the heterotopic bone was excised from the patellar tendon tissue and quadriceps tendon tissue. T he tendon tissue was left intact to attachment of the patella. Then, a subperiosteal peel lateral release was performed exposing the lateral patella. There was a fa irly large spiked osteophyte on the lateral side, which was resected. Some of the polyethylene debri s was removed from the patella and we left that for later revision. Then, attention was taken to the tibial polyethylene. The fragments were removed that were loose and then the screw was loosened and then a curved osteotome was used to remove the tibial polyethylene uneventfully. This gave us more e xposure to remove some more of the synovium around the posterior knee and medial and lateral sides of the tibial implant. There was some imbedded polyethylene within that synovial tissue as well. After the thorough synovectomy was performed, the knee was copiously irrigated with pulsatile lavage saline solution. Then, we did a trial reduction and chose the size 4 x 15 mm series 500 tibial inser t, which is a posterior stabilized insert. The trial was placed for that, and we verified that, stab ility was satisfactory. Range of motion was good with the trial. At this time, the trial was remove d and we placed a sponge between the metallic components and this gave us better access to the patell a. Two towel clips were placed in the quad tendon and patellar tendon, and the patella was everted a nd then the patella width was measured with a caliper. Then, an oscillating saw was used to cut off the patellar component from the underlying patella. Then, the patella was measured and a 32 mm diameter x 8 mm patella component was chosen. The guide f or the patellar drill holes was placed and 3 new drill holes were placed. The old polyethylene pegs were removed from the patella and all cysts were curetted out, and then after further pulsatile lavag e saline solution, the patella was then cemented with Refobacin Ofelia Biomet cement. The clamp was placed. Excess cement was cleared and the patella was kept clamped until the cement cured. The tibi al polyethylene was exchanged with a final component using the 4 x 15 series 500 tibial insert, which was impacted into the tibial baseplate and screwed in position tightly. The insert was noted to be stable. Knee was taken through a range of motion. Patella tracked centrally and the knee was stable through full range of motion. Betadine soak was used for 3 minutes. The knee was copiously irrigated with pulsatile lavage saline solution. Prior to placing the tibial insert, we did inject the knee with Orthomix anesthetic cockta il into the capsular areas, retinacular areas. The 2 Hemovac drains were placed out laterally and th en the quadriceps tendon and medial retinaculum were repaired with interrupted [id number] #1 Vasyl ryl sutures. Knee was taken through full range of motion. The repair was secure. Subcutaneous tiss ue was closed with interrupted 2-0 Vicryl sutures and the skin was closed with tania and a Silverlo n dressing was then applied. The patient had minimal blood loss and tolerated the procedure well. Marco Kwan PA-C was my court assistant and functioned as court assistant for the entire procedur e. He assisted in leg positioning, soft tissue retraction, instrument management, and assisted in th e subcutaneous and skin closure and will participate in postoperative care of the patient. Job ID: [id number]
[2021-04-29] MEDS: HYDROCODONE/ACETAMOPHEN 5/325MG TAB PO PRN (23:20)
[2021-04-30] MEDS: HYDROCODONE/ACETAMOPHEN 5/325MG TAB PO PRN ×2 (03:36→07:55)
[2021-04-30 06:27] LABS: Hematocrit (blood only) 27.4 % (37-47); Mean Corpuscular Hemoglobin 31.3 pg (25-34); Mean Corpuscular Hgb Conc 32.8 g/dL (32-36); Mean Corpuscular Volume 95.1 fL (80-100); Mean Platelet Volume 9.7 fL (7.4-10.4); Platelet Count 240 K/uL (130-400); Red Blood Count 2.88 M/uL (4.2-5.4)
[2021-04-30 06:52] LABS: BUN Creatinine Ratio 35.8 (10-20); Calcium 8.4 mg/dl (8.5-10.1); Creatinine Clr Calc Pharmacy 92.9 ml/min; Est GFR (Non-African American) 93.2 ml/min; Potassium 3.6 mmol/L (3.5-5.1)
[2021-04-30] MEDS: DULoxetine HCL 20 MG CAP PO SCH (08:55)
[2021-04-30] MEDS: CeleBREX 200 MG CAP PO SCH (08:56)
[2021-04-30] MEDS: DOCUSATE SODIUM 100 MG CAP PO SCH (08:56)
[2021-04-30] MEDS: ASPIRIN 81 MG ECTAB PO SCH (08:56)
[2021-04-30] MEDS ORDERED: ASCORBIC ACID 500 MG TAB PO SCH (09:00)
[2021-04-30] MEDS ORDERED: MULTIVITAMIN TAB PO SCH ×2 (09:00)
[2021-04-30] MEDS ORDERED: CHOLECALCIFEROL 1,000 UNITS 25 MCG TAB PO SCH (09:00)
[2021-04-30] MEDS ORDERED: LISINOPRIL/HCTZ 10/12.5MG TAB PO SCH (09:00)
[2021-04-30] MEDS ORDERED: PANTOprazole 40 MG TAB PO SCH (09:00)
--- NOTE | 2021-04-30 11:02 | Orthopedic Progress Note ---
Date of Service April 30, 2021 Assessment & Plan (1) Instability of left knee joint: Plan: Postop day 1 status post polyethylene bearing change and patellar revision. PT/OT protocols. Weightbearing as tolerated. Patient progressing well with her physical therapy. DVT prophylaxis-aspirin p.o. twice daily, SCDs, BARI marcos. Pain management as written. DC planning-patient is planning for outpatient PT upon discharge. Plan for dc to home today. Admission and Anticipated Discharge Date Admission Date: April 29, 2021 Supervising Physician Co-Signing Physician Notes Patient seen and examined. Agree with BYRON Roy's note as above. Postoperative day 1 status post left revision total knee doing very well. She is ambulating well and pain is well controlled. Plan for discharge today. Subjective Postop day 1 Patient sitting up in bed awake and alert. She just finished her OT session. Occupational therapist said she did very well. Patient states that she ambulated the hallways today with physical therapy. Pain is controlled. She denies shortness of breath, chest pain, lightheadedness.She is hoping to go home today. Physical Exam Physical Exam: Dressings are clean, dry, and intact. Calves are soft nontender. Neurovascular is intact. Toes are mobile. She has good dorsiflexion and plantarflexion of the left foot. She had 75 mL out of her Hemovac from the previous shift. Results & Data ([facility]) Vital Signs (Past 12 Hours) Vital Signs Temp Pulse Resp BP Pulse Ox 04/30/21 10:43 36.5 C 79 16 96/64 L 93 04/30/21 07:14 36.9 C 86 16 101/69 93 04/30/21 03:29 36.7 C 85 16 100/64 92 Laboratory Results Laboratory Results WBC 10.80 K/uL (4.8-10.8) 04/30/21 06:04 RBC 2.88 M/uL (4.2-5.4) L 04/30/21 06:04 Hgb 9.0 g/dL (12.0-16.0) L 04/30/21 06:04 Hct 27.4 % (37-47) L 04/30/21 06:04 MCV 95.1 fL (80-100) 04/30/21 06:04 MCH 31.3 pg (25-34) 04/30/21 06:04 MCHC 32.8 g/dL (32-36) 04/30/21 06:04 RDW Std Deviation 45.0 fL (36.4-46.3) 04/30/21 06:04 RDW Coeff of Kimberly 13.0 % (11.5-14.5) 04/30/21 06:04 Plt Count 240 K/uL (130-400) 04/30/21 06:04 MPV 9.7 fL (7.4-10.4) 04/30/21 06:04 Sodium 140 mmol/L (136-145) 04/30/21 06:04 Potassium 3.6 mmol/L (3.5-5.1) 04/30/21 06:04 Chloride 111 mmol/L (98-107) H 04/30/21 06:04 Carbon Dioxide 23 mmol/L (21-32) 04/30/21 06:04 Anion Gap 6.0 (3-11) 04/30/21 06:04 BUN 20 mg/dl (7-18) H 04/30/21 06:04 Creatinine 0.56 mg/dl (0.6-1.2) L 04/30/21 06:04 Est Cr Clr Drug Dosing 92.9 ml/min 04/30/21 06:04 Est GFR ( Amer) 108.0 ml/min 04/30/21 06:04 Est GFR (Non-Af Amer) 93.2 ml/min 04/30/21 06:04 BUN/Creatinine Ratio 35.8 (10-20) H 04/30/21 06:04 Glucose 147 mg/dl (70-99) H 04/30/21 06:04 Calcium 8.4 mg/dl (8.5-10.1) L 04/30/21 06:04 COVID-19 Eval Order Covid19 at [facility] 04/29/21 10:00 SARS-CoV-2 (PCR) NEGATIVE (Negative) 04/29/21 10:00 Impressions Knee X-Ray 04/29/21 16:24 LEFT KNEE 2 VIEWS History: Left total knee arthroplasty. Degenerative arthritis. Postop. FINDINGS: The patient is status post a left total knee arthroplasty. The hardware is intact. No fracture or dislocation. Skin tania and surgical drains are in place. IMPRESSION: Left total knee arthroplasty. No evidence for hardware complication. ACT 112: Negative or not required by law. Electronically signed by: Oj Lauren M.D. 04/29/2021 4:45 PM
--- NOTE | 2021-04-30 13:06 | Hospitalist Progress Note ---
Date of Service April 30, 2021 Assessment & Plan (1) HTN (hypertension): Plan: Noted blood pressure on low side but stable and asymptomatic; should become her normal self when she goes homecan resume from tomorrow unless home blood pressures persistently low-notified her (2) Dyslipidemia: Plan: Continue Zocor (3) Depression: Plan: Home meds (4) GERD (gastroesophageal reflux disease): Plan: Continue PPI (5) Acute blood loss as cause of postoperative anemia: Plan: Postop anemia can be followed Admission and Anticipated Discharge Date Admission Date: April 29, 2021 Subjective Status post knee surgery; follow-up for medical managementno complaints; keen to go home Physical Exam Physical Exam: Constitutional and general: No acute distress, looks biologic age Head and face: No puffiness, atraumatic Eyes: No scleral icterus, extraocular movements normal Neck: Supple, no JVD Skin/dermatologic/integument: No rash, no purpura Hematologic and lymphatic: pallor +, no petechia Gastrointestinal/abdomen: Nondistended Neurologic: Cranial nerves intact, nonfocal Psychiatry: Awake, alert, pleasant, communicative Cardiovascular: Heart rhythm regular, no rub, no murmur, no gallop Respiratory: Chest movements equal, no use of accessory muscles, no adventitious sounds Extremities: No edema, no cyanosis Results & Data Results & Data ([facility]) Vital Signs (Past 12 Hours) Vital Signs Temp Pulse Resp BP Pulse Ox 04/30/21 10:43 36.5 C 79 16 96/64 L 93 04/30/21 07:14 36.9 C 86 16 101/69 93 04/30/21 03:29 36.7 C 85 16 100/64 92 Laboratory Results Laboratory Results - last 24 hr 04/30/21 04/30/21 06:04 06:04 WBC 10.80 RBC 2.88 L Hgb 9.0 L Hct 27.4 L MCV 95.1 MCH 31.3 MCHC 32.8 RDW Std Deviation 45.0 RDW Coeff of Kimberly 13.0 Plt Count 240 MPV 9.7 Sodium 140 Potassium 3.6 Chloride 111 H Carbon Dioxide 23 Anion Gap 6.0 BUN 20 H Creatinine 0.56 L Est Cr Clr Drug Dosing 92.9 Est GFR ( Amer) 108.0 Est GFR (Non-Af Amer) 93.2 BUN/Creatinine Ratio 35.8 H Glucose 147 H Calcium 8.4 L PG Care Time/CCT Total # of Minutes Spent Total Time Spent with Patient: To Coding Level of Care Code 00293 Subseq Hosp Care Lvl 2 Diagnoses HTN (hypertension) I10 Dyslipidemia E78.5 Depression F32.9 GERD (gastroesophageal reflux disease) K21.9 Acute blood loss as cause of postoperative anemia D62
[2021-05-01] MEDS ORDERED: LISINOPRIL/HCTZ 10/12.5MG TAB PO SCH (09:00)
--- NOTE | 2021-05-01 18:46 | Discharge Summary ---
Date of Service May 01, 2021 Admission HPI Per Admitting Provider P70 year old female with PMHx significant for HTN, high cholesterol, GERD, and anxiety presents with left knee pain and instability. She has noticed increased giving out and instability to her left knee affecting her daily activities and leisure activities. Feels as if something is floating around in her knee. 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 Primary Total knee was done by Dr. Diaz in 1998. Patient denies headaches, sweats, fevers, chills, double vision, blurred vision, cough, sore throat, dysphagia, chest pain, sob, wheezing, n/v/d/c, numbness, tingling, fatigue, urinary symptoms, mood disorders. ROS positive for right knee pain and stiffness. Admission Exam Per Admitting Provider Constitutional: well developed and well nourished; no acute distress Eyes: PERRL, conjunctivae normal, anicteric sclerae ENMT: external ear and nose normal, oropharynx normal Neck: trachea midline, no thyromegaly Respiratory: normal respiratory effort, lungs clear to auscultation Cardiovascular: RRR, no murmur, no edema Musculoskeletal: Left knee: well healed surgical scars. Mild effusion. Mild tenderness diffusely. Positive posterior drawer with increased laxity to valgus and varus stress. ROM 0-130 degrees. Subluxation with posterior drawer with reduction with knee extension. Skin: no rashes, warm and dry Neurologic: patellar DTR's 2+ bilat, sensation intact Psychiatric: A+Ox3, euthymic affect Principal Diagnosis Left knee poly post fracture, patella wear Discharge Exam Constitutional well developed and well nourished; no acute distress Eyes PERRL, conjunctivae normal, anicteric sclerae ENMT external ear and nose normal, oropharynx normal Neck trachea midline, no thyromegaly Respiratory normal respiratory effort, lungs clear to auscultation Cardiovascular RRR, no murmur, no edema Skin no rashes, warm and dry Neurologic patellar DTR's 2+ bilat, sensation intact Psychiatric A+Ox3, euthymic affect Discharge Data Allergies Allergy/AdvReac Type Severity Reaction Status Date / Time Penicillins Allergy Mild Rash Verified 04/29/21 10:33 oxycodone AdvReac Intermediate Nausea Verified 04/29/21 10:33 tramadol AdvReac Mild Nausea, Verified 04/29/21 10:33 upset stomach Consultations 04/27/21 12:28 Consult Hospitalist Routine Procedures Performed Operation Date: 04/29/21 12:15 Actual Procedures p Left Knee Poly Exchange, Patellar Button Exchange, Excision Heterotopic Bone, Synovectomy(Left) - Steve Mccarthy MD Ordered Studies 04/27/21 12:33 US - OR guided needle placemen Routine 04/29/21 13:38 US - OR guided needle placemen Routine Hospital Course (1) Instability of left knee joint: Patient presented for same day admission following left knee poly exchange, revision patella, synovectomy, excision heterotopic bone on 04/29/21. She tolerated procedure well. The Patient had an uneventful hospital course. Post-operatively, her activity was progressed and well tolerated. They participated in PT with ambulation distance of 200 feet. ROM of operative knee reached 78 degrees. Labs remained stable- lowest hemoglobin recorded: 9.0. Dr. Hans Narvaez of medical service was consulted for medical management during admission. Pain controlled on oral medications. Please refer to daily progress notes and PT notes for complete details. After exam on 04/30/21, patient was felt to be stable for discharge home with plans on going to outpatient PT. Patient will f/u in the office in about 2 weeks for further evaluation including x-rays and incision check, sooner if having any issues or concerns. Postop day 1 status post polyethylene bearing change and patellar revision. PT/OT protocols. Weightbearing as tolerated. Patient progressing well with her physical therapy. DVT prophylaxis-aspirin p.o. twice daily, SCDs, BARI marcos. Pain management as written. DC planning-patient is planning for outpatient PT upon discharge. Plan for dc to home today. Total Time Total Time Spent Total Time Spent (In Minutes): 20 Discharge Plan Discharge Items Patient Disposition: Home - Self-Care Reason For Visit: Left Knee Fractured Poly, Instabilty Discharge Diagnosis: Left knee fractured poly, patella wear, synovitis Activity: Per Instructions section Weightbearing: Right weightbearing Weightbearing Comment: as tolerated with walker Non-emergency contact: Surgeon Call non-emergency contact if: you have any medication questions, your pain is not controlled, your pain is concerning for you, your temperature is above 101, your wound has increased redness and your wound has increased drainage Follow-up/Referrals: Mina Beckham DO [Primary Care Provider] - Diet: Regular Addtl Attending Provider Instructions: ACTIVITY RECOMMENDATIONS: SELF CARE INSTRUCTIONS AFTER TOTAL KNEE REPLACEMENT A. You may need to continue a physical therapy program after discharge from the hospital. There are several options available to you. Your doctor will assist you in selecting the best one for you. 1. An out-patient facility 2 to 3 times a week for therapy or home therapy. 2. Continue working on all exercises taught to you in the hospital. Your goals should be to increase bending of your knee to 90 degrees and beyond and to fully straighten your knee. B. You may progress at your own pace from walking with a walker or crutches to a cane; then to no assistive devices. C. Make walking a part of your daily routine. Be up as much as comfortable with rest periods throughout the day. Rest with leg elevation is very important. Use the ice wrap frequently for the first 3-4 weeks. D. There are no restrictions on activities. You may ride in a car, shop, participate in ambulatory analyst and all social activities. E. Wear the long elastic stockings (BARI hose) 20 hours a day for 2 weeks after surgery. They can be removed several times a day for laundering and for a bath. F. You may shower, no tub baths until cleared by your doctor. SPECIAL CARE INSTRUCTIONS: VERY IMPORTANT TO READ AND REVIEW A. There are a few signs you need to watch for after you are home. Call [facility] if you notice any of the followin. Increased severe knee pain. Some pain is expected especially when you exercise. 2. Increased swelling in your leg or knee; pain or swelling of the calf muscle in either lower leg. 3. Any fluid drainage from the incision. 4. Shortness of breath or chest pain. B. Please call [facility] at if you have any concerns or questions about your operation or recovery. The doctor or his nurse will return your call promptly. C. You must take antibiotics before dental work, bladder, bowel or other surgery. Your doctor will provide you with a permanent care to carry describing this precaution. IMPORTANT: * REMEMBER TO TAKE ASPIRIN, 81 MG, TWICE DAILY FOR 4 WEEKS UNLESS OTHERWISE DIRECTED. THIS IS YOUR BLOOD THINNER. * HIGH RISK PATIENTS MAY BE PRESCRIBED A STRONGER BLOOD THINNER. THIS WILL BE PROVIDED AT DISCHARGE. * CALL IF INCREASED PAIN, REDNESS, DRAINAGE OR FEVER GREATER THAT 101. * WEAR BARI HOSE 20 HOURS PER DAY FOR 2 WEEKS. This is a large adhesive bandage that contains silver ions. This helps your incision heal by fighting off bacteria and protecting it from the outside envir onment. You are permitted to shower with this dressing. This will remain on your incision for 7 days and then should be removed. Some visible blood or drainage through the dressing window is normal. If there is significant drainage or leaking noted before the 7 days notify your doctor's office immediately. Once removed, keep incision clean and dry. If there is any drainage or redness noted, please call your surgeon. IF INCISION IS LEAKING THROUGH DRESSING, CALL THE OFFICE . FOLLOW UP VISIT: If appointment is not already scheduled: Please call [facility] to make a follow-up appointment for 2 weeks after your surgery at . Stand-Alone Forms: [facility], Opioid Pain Management, Smoking Cessation Medications and DC Order Prescriptions: New aspirin 81 mg Tablet,Delayed Release (Dr/Ec) 81 mg PO BID 30 Days Qty: 60 RF: 0 hydrocodone-acetaminophen 5-325 mg tablet 1 - 2 tab PO Q6H MDD 8 tabs PRN (Reason: pain) Qty: 30 RF: 0 polyethylene glycol 3350 [Miralax] 17 gram powder in packet 17 g PO DAILY PRN (Reason: constipation) Qty: 5 RF: 0 Continued hydrocortisone 2.5 % cream 1 appln TOP BID PRN (Reason: skin irritation) Qty: 20 RF: 0 simvastatin 20 mg tablet 20 mg PO QPM Qty: 90 RF: 3 famotidine 20 mg tablet 20 mg PO HS Qty: 30 RF: 5 albuterol sulfate 90 mcg/actuation HFA aerosol inhaler 2 puff inhalation Q4H PRN (Reason: shortness of breath or wheezing) Qty: 18 RF: 3 gabapentin 100 mg capsule 100 mg PO HS Qty: 30 RF: 2 duloxetine 40 mg capsule,delayed release(DR/EC) 40 mg PO BID Qty: 180 RF: 0 cholecalciferol (vitamin D3) 25 mcg (1,000 unit) capsule 25 mcg PO QAM RF: 0 lorazepam [Ativan] 0.5 mg tablet 0.5 mg PO BID PRN (Reason: anxiety) Qty: 60 RF: 1 lisinopril-hydrochlorothiazide 10-12.5 mg tablet 1 tab PO QAM Qty: 90 RF: 3 clindamycin HCl 150 mg capsule 600 mg PO UD PRN (Reason: prior to dental procedures) RF: 0 ascorbic acid (vitamin C) 500 mg tablet 500 mg PO QAM RF: 0 meclizine 25 mg tablet 25 mg PO TID PRN (Reason: Dizziness) RF: 0 triamcinolone acetonide 0.1 % ointment 1 appln topical HS PRN (Reason: Rash) RF: 0 diclofenac sodium 1 % gel 2 gm TOP QID PRN (Reason: joint pain) RF: 0 pantoprazole 40 mg tablet,delayed release (DR/EC) 40 mg PO QAM RF: 0 multivitamin Tablet 1 tab PO QAM RF: 0 Discontinued acetaminophen [Acetaminophen Extra Strength] 500 mg Tablet 1,000 mg PO DAILY PRN (Reason: headaches) RF: 0 aspirin 81 mg tablet,delayed release (DR/EC) 81 mg PO QPM RF: 0 Discharge Orders: Discharge Order (Routine); Ordered 04/30/21 Ordered By: Paddy Michele/Other Patient Handouts: DVT Post Op Prevention Admission Data Admit Date/Time: 04/29/21 16:24 Attending Provider: Steve Mccarthy Admit Provider: Steve Mccarthy Primary Care Provider: Mina Beckham Providers: Gonzales Duran Other Interventions: Discharge Summary Assessment (RN) Last Done: 04/30/21 13:20
== END 2021-04-30 14:08 | disposition home or self-care (01) ==
LOC: 3E 09:56 → ASU 09:56